=== PATIENT | male | born 1935 | race Caucasian/White ===

== ENCOUNTER 2018-10-10 16:24 | Emergency (ER) | payer MEDICARE, OTHER ==
[~2018-10-10] VITALS: Ht 188 cm; Wt 90.7 kg
--- OUTSIDE RECORDS SUMMARY | 2018-10-10 16:27 | XMS REPORT ---
Author Author [facility] Address Unknown Phone Unavailable Care Team Providers Care Promotional Marketing Agent Name Role Phone Unavailable Unavailable Payers Payer Name Policy Type Policy Number Effective Date Expiration Date Problems This patient has no known problems. Allergies, Adverse Reactions, Alerts Allergy Name Allergy Type Status Severity Reaction(s) Onset Date Inactive Date Treating Clinician Comments No Known Allergies DA Active U 2018-10-06 00:00:00 No Known Allergies DA Active U 2012-07-01 00:00:00 Medications This patient has no known medications. Results Test Description Test Time Test Comments Text Results Atomic Results Result Comments CHEMISTRY MISCELLANEOUS TEST 2018-10-07 12:22:00 CHEMISTRY TEST (test code=TESTC) NeoTYPE Analysis Next-Gen Myeloid Disorders Profile CHEMISTRY TEST RESULT (test code=RESULTC) Results Summary / Diagnostic & Prognostic Implications - NEXT GENERATION SEQUENCING (NGS): Pathogenic mutations aredetected in the following genes: KDM6A and TP53. A variantof unknown clinical significance is detected in the TEVWO2ncmw. No mutations are detected in the remaining genes onthe NGS panel. -TP53 mutation is typically seen in high grade MDS/AML caseswith a complex karyotype and suggests highly aggressivedisease and a poor prognosis, even within the poor-riskcytogenetic group. Detected Genomic IewszhimsbfogODB4I S818* V1171Muj*0JZUXD7 K8746Dmz*3TP53 Q167* K132N Disease Relevant Genes with No Reportable AlterationsIDH1 IDH2 FLT3 Test DescriptionNeoTYPE Myeloid Disorders Profile is performed by usingmassive parallel sequencing of the coding DNA unless anothermethod is noted. This includes sequencing of all the exons.An additional 50 nucleotides at the 5 and 3 ends of eachcoding exon are also sequenced to detect important splicingabnormalities. The genes sequenced are ABL1, ASXL1, ATRX,BCOR, BCORL1, BRAF, CALR, CBL, CBLB, CBLC, CDKN2A, CEBPA,CSF3R, CUX1, DNMT3A, ETV6, EZH2, FBXW7, FLT3, GATA1, GATA2, GNAS, HRAS, IDH1, IDH2, IKZF1, JAK2 (including V617F &Exons 12-14), JAK3, KDM6A, KIT, KMT2A (MLL), KRAS, MPL, MYD88, NF1, NOTCH1, NPM1, NRAS, PDGFRA, PHF6, PPM1D, PTEN,PTPN11, RAD21, RUNX1, SETBP1, SF3B1, SMC1A, SMC3, SRSF2, STAG2, TET2, TP53, U2AF1, WT1, and ZRSR2. Clinical SignificanceThe NeoTYPE Myeloid Disorders Profile is a 54 gene panelthat targets known mutations associated with acute myeloidleukemia (AML), myeloproliferative neoplasms (MPN),myelodysplastic syndrome (MDS), chronic myelogenous leukemia(CML), chronic myelomonocytic leukemia (CMML) and juvenilemyelomonocytic leukemia (JMML). Testing using this panelcan aid in making therapy decisions, predicting prognosis,and can be used in clinical research. This is a generic andcomprehensive profiling of myeloid neoplasms. MethodologyNucleic acid is isolated from plasma, fresh cells(peripheral blood cells, bone marrow or body fluid), orparaffin-embedded tissue. Testing for NeoTYPE Myeloid Disorders Profile is performed using Next-GenerationSequencing (NGS) of the coding DNA of the listed genes. This includes sequencing of all the exons. An additional 50 nucleotides at the 5 and 3 ends of each coding exon are also sequenced to detect important splicing abnormalities. Fragment length analysis is alsoperformed on CALR and FLT3 to enhance the detection of largeinsertion/deletion mutations. The NGS method has atypical sensitivity of 3% for detecting common specificmutations and 5% for other mutations. The following exonsare not included in the panel as they are not sufficiently covered with high quality sequence reads: FLT3 exon 1, NOTCH1 e xon 1, and NPM1 exon 2. These exons have been reviewed and do not contain clinically significant mutations. Exon 10 in PTEN and exon 11 in JAK3 containing p.[id number] typically have a limit of detection of 10% mutation allele frequency. The FLT3- ITD fragment analysis assay has a sensitivity of 5-10% for detecting FLT3-ITD in wildtype background. The FLT3 wildtypeand the ITD peak size and peak height are evaluated and usedfor mutation rate calculation [ITD/ (ITD+wildtype)] *100%.The CALR fragment analysis test has a sensitivity of 5% fordetecting heterozygous insertion/deletions in the wild-typebackground. Various factors including quantity and qualityof nucleic acid, sample preparation, and sample age canaffect assay performance. Electronic Anahi Louise M.D., Pathologist [facility] [id number] 12:22:00* Test Item Value Reference Range Comments FLUORESCENCE [employer] HYBRID (test code=FISH) FISH Analysis - AML Standard Results: Abnormal Interpretation:Del(5q): DETECTEDMonosomy 5: Not DetectedDel(7q): Not DetectedMonosomy 7: Not DetectedTrisomy 8: DETECTEDt(8;21): Not Detected (See Below)t(15;17): Not DetectedDel(20q): Not DetectedCBFB (Rearrangement): Not EfmmttofIBS5S (MLL) Rearrangement: Not Detected Fluorescence in situ hybridization (FISH) analysis wasperformed using a specific set of probes for acute myeloidleukemia. This study revealed multiple abnormalities involving:chromosome 5 (del 9w56-i15, 1R1G2A, 5.5%, normal < 3.8%),chromosome 8 (+8, 3A, 8.5%, normal < 3.1%) corroborated by the concurrent 8q probe, and chromosome 21 (loss of RUNX1, 1G, 11.0%, not seen in validation studies). Counts for the remaining probes were within the normal reference range. These findings represent an ABNORMAL result indicative of a complex abnormality. Deletion of 5q (5q-) or monosomy 5 has been reported in MDSand AML. In AML with 5q-/-5, the prognosis is generallyunfavorable, associated with rapid disease progression and poor outcome and survival, especially when it is seen as a part of complex karyotype. While the de yecenia "5q- syndrome"with isolated 5q- is recognized as a specific type of MDS in WHO classification and is associated with a favorable prognosis, the prognosis is less favorable when 5q- is found with other chromosome alterations in a complexkaryotype (3 or more abnormal ities). The current World Health Organization criteria for "MDS with isolated del(5q)" allows the presence of one additionalchromosomal abnormality other than -7 or deletion 7q.Trisomy 8 (+8) is associated with an intermediate prognosis. When abnormalities with favorable or intermediate prognosisare combined with other abnormalities (more than 3abnormalities present) the resulted complex abnormality is associated with a poor prognosis. Please correlate with other clinical and laboratory data. References:1. Guillermo PL, Shellieler H, Ion J, et al. Revisedinternational prognostic scoring system for myelodysplasticsyndromes. Blood 2012 Nov 19;120(12):2454-65.2. Carolina D, Mariangel RK, Leonora AV, et al. National CancerResearch [place] Adult Leukaemia Working Group. Refinementof cytogenetic classification in acute myeloid leukemia:determination of prognostic significance of rare recurringchromosomal abnormalities among 5876 younger adult patients treated in the [place] [employer] [place] trials. Blood 2009Sep 20;116(3):354-65.3. [place] of Genetics and Cytogenetics in Oncology andHematology [email or web address] Probe Set Detail:+8/20q-/-20: nuc eliel(CEN8x3,I74H114u5,09cenyw3)[]5q-/-5/+5 tricolor: nuc eliel(hTERTx2,EGR1x1,CVB30u9)[]7q-/-7 tri: nuc eliel(CEN7,O3U4034,M8I6472)x2[291]CBFB (16q22): nuc eliel(CBFBx2)[196]KMT2A (MLL) (11q23)*: nuc eliel(CLH1Pe8)[197]PML/HARRY t(15;17): nuc eliel(PML,HARRY)x2[190]RUNX1/IHRR9W4 (ETO/AML1) t(8;21): nucish(KSVS9I4x4,PONF4z7)[23/300]/(ATMT4H6c9,XCUQ7w8)[10/300]/(WPGX5K3n3,VUQR3b9)[/300] Nuclei Scored: 200 - 300 Electronic SignatureKim Janatpour, M.D., Pathologist - [facility] CHROMOSOME TATA BONE [id number] 12:22:00* Test Item Value Reference Range Comments CHROMOSOME TATA BONE MARROW (test code=CHROMBM) Oncology Chromosome Analysis Karyotype: 46,XY,del(5)(q11.2),del(13)(q12q22)[4]/46,XY[1] Interpretation:ABNORMAL MALE KARYOTYPE Cytogenetic analysis shows an 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 Fourcells show deletions of the long arms of chromosomes 5 and13. The remaining cell shows a normal karyotype. Deletions of the long arms of chromosomes 5 and 13 arecommon findings in myelodysplastic syndromes (MDS) and acutemyeloid leukemia (AML). These results should be interpretedin the context of clinical and histopathologic findings. PLEASE NOTE: Due to poor mitotic index, only five metaphasecells are available for analysis. This is less than ourstandard of twenty cells and therefore represents anincomplete study. Recommendation:Monitoring by cytogenetics, FISH and/or molecular studies isrecommended. Comments:Standard cytogenetic analysis may not detect subtlesubmicroscopic rearrangements and may not include metaphasesfrom abnormal cell populations with low mitotic ratesor present in low levels. Test Detail:Me reyes Counted: 5Metaphases Analyzed: 5Metaphases Karyotyped: 5Culture Type: 24EB, 48EBBanding Technique: GTGBanding Resolution: 400 Electronic SignatureGENOVEVA Beaulieu (CC), [facility] - [facility] Scott M.D., Ph.D., Pathologist - [facility]. LEUK/LYMPHOMA [id number] 12:22:00* Test Item Value Reference Range Comments LEUK/LYMPHOMA PANEL (test code=LEULYM) Specimen Type: Bone MarrowBody Site: Right Iliac Crest Diagnosis:Monoclonal B-cells, 7% Comments:Flow cytometry shows monoclonal B-cells (7% of total cells)with mod to bright CD20, mod CD19, dim/equivocal JF12yoavxhrigm, moderate to bright CD11c, dim/equivocal CD103, and moderate CD25. The findings raise the possibilityof a hairy cell leukemia as well asother B-cell lymphomas. Additional markers will be analyzedfor clarification and results will be addended. Ifclinically and morphologically indicated, BRAF mutation analysis may be helpful to excludeHCL. Dr. Pagan has seen this case and he agrees. Flow Differential (%) and Population Analysis: Lymphocytes: 53.1%T-cells (78% of lymphoid cells) show a CD4/CD8 ratio about0.8 without overt phenotypic abnormality. NKcells(2% of lymphoid cells) ar e unremarkable. Mature B-cells (13%of lymphoid cells) are lambda clonal :see above. Monocytes: 3.7%Monocytes show phenotypic evidence of maturation. Granulocytes: 37.4%Granulocytes show phenotypic evidence of maturation.CD45 Dim: 5.0%CD34+ cells (4.1% of total cells) are present.CD45 Ne.6%Erythroids and cell debris. Plasma Cells: 0.1%Plasma cells are not increased. Markers Performed:CD2, CD3, CD4, CD5, CD7, CD8, CD10, CD11c, CD13, CD14, CD16,CD19, CD20, CD22, CD23, CD25, CD33, CD34, CD38, CD45, CD56,CD64, CD103,CD117, HLA-DR, Pulpotio Bareas, Lambda (27 Markers) Katelyn Reeves M.D., Pathologist CBC W/MANUAL [id number] 19:54:00* Test Item Value Reference Range Comments WHITE BLOOD CELL (test code=WBC) 0.4 K/mm3 4.5-11.0 RED BLOOD CELL (test code=RBC) 2.28 M/mm3 4.40-5.90 HEMOGLOBIN (test code=HGB) 8.0 gm/dL 13.0-17.0 HEMATOCRIT (test code=HCT) 24.6 % 36.0-48.0 MEAN CELL VOLUME (test code=MCV) 107.9 UM3 80.0-94.0 MEAN CELL HGB (test code=MCH) 35.1 UUG 25.5-32.5 MEAN CELL HGB CONCETRATION (test code=MCHC) 32.5 gm/dL 29.0-35.5 RED CELL DISTRIBUTION WIDTH (test code=RDW) 22.4 % 11.5-15.0 RED CELL DISTRIBUTION WIDTH SD (test code=RDW-SD) 84.9 fL 34.8-50.2 PLATELET COUNT (test code=PLT) 38 K/mm3 150-400 PLT EST.=48 K/mm3 MEAN PLATELET VOLUME (test code=MPV) 9.9 fl 7.4-10.4 NEUTROPHIL % (test code=NT%) 22.5 % 49.0-76.0 IMMATURE GRANULOCYTE % (test code=IG%) 7.5 % 0.0-0.4 LYMPHOCYTE % (test code=LY%) 65.0 % 23.0-38.0 MONOCYTE % (test code=MO%) 5.0 % 1.0-10.0 EOSINOPHIL % (test code=EO%) 0.0 % 1.0-5.0 BASOPHIL % (test code=BA%) 0.0 % 0.0-1.0 NEUTROPHIL # (test code=NT#) 0.1 K/mm3 2.4-6.3 IMMATURE GRANULOCYTE # (test code=IG#) 0.03 x10 3/uL 0.00-0.07 LYMPHOCYTE # (test code=LY#) 0.3 K/mm3 1.2-4.0 MONOCYTE # (test code=MO#) 0.0 K/mm3 0.0-0.6 EOSINOPHIL # (test code=EO#) 0.0 K/MM3 0.0-0.7 BASOPHIL # (test code=BA#) 0.0 K/mm3 0.0-0.2 TOTAL CELLS COUNTED (test code=TCC) 100 #CELLS SEGMENTED NEUTROPHILS (test code=SEG) 18 % 50.0-70.0 BAND NEUTROPHIL (test code=BAND) 3 % 1.0-4.0 LYMPHOCYTE (test code=LYMPH) 52 % 20-40 ATYPICAL LYMPH (test code=ALYMPH) 20 1.0-4.0 MONOCYTE (test code=MON) 1 % 0-10 EOSINOPHIL (test code=EOS) 2 % 1.0-5.0 METAMYELOCYTE (test code=META) 4 % 0.0-1.0 ANISOCYTOSIS (test code=ANISO) 1+ MACROCYTOSIS (test code=MACR) 2+ PLATELET ESTIMATE (test code=PLTEST) DECREASED PLATELET MORPHOLOGY (test code=PLTMORPH) SMALL PLATELETS OCC SMALL PLTS, RARE PLT CLUMPS, AND OCC LARGE PLTS SEEN. Comments to [employer]: [facility]UAL [id number] 19:53:00* Test Item Value Reference Range Comments WHITE BLOOD CELL (test code=WBC) 0.4 K/mm3 4.5-11.0 RED BLOOD CELL (test code=RBC) 2.28 M/mm3 4.40-5.90 HEMOGLOBIN (test code=HGB) 8.0 gm/dL 13.0-17.0 HEMATOCRIT (test code=HCT) 24.6 % 36.0-48.0 MEAN CELL VOLUME (test code=MCV) 107.9 UM3 80.0-94.0 MEAN CELL HGB (test code=MCH) 35.1 UUG 25.5-32.5 MEAN CELL HGB CONCETRATION (test code=MCHC) 32.5 gm/dL 29.0-35.5 RED CELL DISTRIBUTION WIDTH (test code=RDW) 22.4 % 11.5-15.0 RED CELL DISTRIBUTION WIDTH SD (test code=RDW-SD) 84.9 fL 34.8-50.2 PLATELET COUNT (test code=PLT) 38 K/mm3 150-400 MEAN PLATELET VOLUME (test code=MPV) 9.9 fl 7.4-10.4 NEUTROPHIL % (test code=NT%) 22.5 % 49.0-76.0 IMMATURE GRANULOCYTE % (test code=IG%) 7.5 % 0.0-0.4 LYMPHOCYTE % (test code=LY%) 65.0 % 23.0-38.0 MONOCYTE % (test code=MO%) 5.0 % 1.0-10.0 EOSINOPHIL % (test code=EO%) 0.0 % 1.0-5.0 BASOPHIL % (test code=BA%) 0.0 % 0.0-1.0 NEUTROPHIL # (test code=NT#) 0.1 K/mm3 2.4-6.3 IMMATURE GRANULOCYTE # (test code=IG#) 0.03 x10 3/uL 0.00-0.07 LYMPHOCYTE # (test code=LY#) 0.3 K/mm3 1.2-4.0 MONOCYTE # (test code=MO#) 0.0 K/mm3 0.0-0.6 EOSINOPHIL # (test code=EO#) 0.0 K/MM3 0.0-0.7 BASOPHIL # (test code=BA#) 0.0 K/mm3 0.0-0.2 TOTAL CELLS COUNTED (test code=TCC) 100 #CELLS SEGMENTED NEUTROPHILS (test code=SEG) 18 % 50.0-70.0 BAND NEUTROPHIL (test code=BAND) 3 % 1.0-4.0 LYMPHOCYTE (test code=LYMPH) 52 % 20-40 ATYPICAL LYMPH (test code=ALYMPH) 20 1.0-4.0 MONOCYTE (test code=MON) 1 % 0-10 EOSINOPHIL (test code=EOS) 2 % 1.0-5.0 METAMYELOCYTE (test code=META) 4 % 0.0-1.0 ANISOCYTOSIS (test code=ANISO) 1+ MACROCYTOSIS (test code=MACR) 2+ PLATELET ESTIMATE (test code=PLTEST) DECREASED PLATELET MORPHOLOGY (test code=PLTMORPH) SMALL PLATELETS OCC SMALL PLTS, RARE PLT CLUMPS, AND OCC LARGE PLTS SEEN. Comments to [employer]: [facility] W/MANUAL [id number] 19:30:00* Test Item Value Reference Range Comments WHITE BLOOD CELL (test code=WBC) 0.4 K/mm3 4.5-11.0 RED BLOOD CELL (test code=RBC) 2.28 M/mm3 4.40-5.90 HEMOGLOBIN (test code=HGB) 8.0 gm/dL 13.0-17.0 HEMATOCRIT (test code=HCT) 24.6 % 36.0-48.0 MEAN CELL VOLUME (test code=MCV) 107.9 UM3 80.0-94.0 MEAN CELL HGB (test code=MCH) 35.1 UUG 25.5-32.5 MEAN CELL HGB CONCETRATION (test code=MCHC) 32.5 gm/dL 29.0-35.5 RED CELL DISTRIBUTION WIDTH (test code=RDW) 22.4 % 11.5-15.0 RED CELL DISTRIBUTION WIDTH SD (test code=RDW-SD) 84.9 fL 34.8-50.2 PLATELET COUNT (test code=PLT) 38 K/mm3 150-400 MEAN PLATELET VOLUME (test code=MPV) 9.9 fl 7.4-10.4 NEUTROPHIL % (test code=NT%) 22.5 % 49.0-76.0 IMMATURE GRANULOCYTE % (test code=IG%) 7.5 % 0.0-0.4 LYMPHOCYTE % (test code=LY%) 65.0 % 23.0-38.0 MONOCYTE % (test code=MO%) 5.0 % 1.0-10.0 EOSINOPHIL % (test code=EO%) 0.0 % 1.0-5.0 BASOPHIL % (test code=BA%) 0.0 % 0.0-1.0 NEUTROPHIL # (test code=NT#) 0.1 K/mm3 2.4-6.3 IMMATURE GRANULOCYTE # (test code=IG#) 0.03 x10 3/uL 0.00-0.07 LYMPHOCYTE # (test code=LY#) 0.3 K/mm3 1.2-4.0 MONOCYTE # (test code=MO#) 0.0 K/mm3 0.0-0.6 EOSINOPHIL # (test code=EO#) 0.0 K/MM3 0.0-0.7 BASOPHIL # (test code=BA#) 0.0 K/mm3 0.0-0.2 SEGMENTED NEUTROPHILS (test code=SEG) % 50.0-70.0 LYMPHOCYTE (test code=LYMPH) % 20-40 Comments to [employer]: ENDO/OUTPT RO[facility] W/MANUAL [id number] 19:30:00* Test Item Value Reference Range Comments WHITE BLOOD CELL (test code=WBC) 0.4 K/mm3 4.5-11.0 RED BLOOD CELL (test code=RBC) 2.28 M/mm3 4.40-5.90 HEMOGLOBIN (test code=HGB) 8.0 gm/dL 13.0-17.0 HEMATOCRIT (test code=HCT) 24.6 % 36.0-48.0 MEAN CELL VOLUME (test code=MCV) 107.9 UM3 80.0-94.0 MEAN CELL HGB (test code=MCH) 35.1 UUG 25.5-32.5 MEAN CELL HGB CONCETRATION (test code=MCHC) 32.5 gm/dL 29.0-35.5 RED CELL DISTRIBUTION WIDTH (test code=RDW) 22.4 % 11.5-15.0 RED CELL DISTRIBUTION WIDTH SD (test code=RDW-SD) 84.9 fL 34.8-50.2 PLATELET COUNT (test code=PLT) 38 K/mm3 150-400 MEAN PLATELET VOLUME (test code=MPV) 9.9 fl 7.4-10.4 NEUTROPHIL % (test code=NT%) 22.5 % 49.0-76.0 IMMATURE GRANULOCYTE % (test code=IG%) 7.5 % 0.0-0.4 LYMPHOCYTE % (test code=LY%) 65.0 % 23.0-38.0 MONOCYTE % (test code=MO%) 5.0 % 1.0-10.0 EOSINOPHIL % (test code=EO%) 0.0 % 1.0-5.0 BASOPHIL % (test code=BA%) 0.0 % 0.0-1.0 NEUTROPHIL # (test code=NT#) 0.1 K/mm3 2.4-6.3 IMMATURE GRANULOCYTE # (test code=IG#) 0.03 x10 3/uL 0.00-0.07 LYMPHOCYTE # (test code=LY#) 0.3 K/mm3 1.2-4.0 MONOCYTE # (test code=MO#) 0.0 K/mm3 0.0-0.6 EOSINOPHIL # (test code=EO#) 0.0 K/MM3 0.0-0.7 BASOPHIL # (test code=BA#) 0.0 K/mm3 0.0-0.2 SEGMENTED NEUTROPHILS (test code=SEG) % 50.0-70.0 LYMPHOCYTE (test code=LYMPH) % 20-40 Comments to [employer]: ENDO/OUTPT ROOM [facility] W/AUTO [id number] 15:25:00 * Test Item Value Reference Range Comments WHITE BLOOD CELL (test code=WBC) 0.4 K/mm3 4.5-11.0 RED BLOOD CELL (test code=RBC) 2.28 M/mm3 4.40-5.90 HEMOGLOBIN (test code=HGB) 8.0 gm/dL 13.0-17.0 HEMATOCRIT (test code=HCT) 24.6 % 36.0-48.0 MEAN CELL VOLUME (test code=MCV) 107.9 UM3 80.0-94.0 MEAN CELL HGB (test code=MCH) 35.1 UUG 25.5-32.5 MEAN CELL HGB CONCETRATION (test code=MCHC) 32.5 gm/dL 29.0-35.5 RED CELL DISTRIBUTION WIDTH (test code=RDW) 22.4 % 11.5-15.0 RED CELL DISTRIBUTION WIDTH SD (test code=RDW-SD) 84.9 fL 34.8-50.2 PLATELET COUNT (test code=PLT) 38 K/mm3 150-400 MEAN PLATELET VOLUME (test code=MPV) 9.9 fl 7.4-10.4 NEUTROPHIL % (test code=NT%) 22.5 % 49.0-76.0 IMMATURE GRANULOCYTE % (test code=IG%) 7.5 % 0.0-0.4 LYMPHOCYTE % (test code=LY%) 65.0 % 23.0-38.0 MONOCYTE % (test code=MO%) 5.0 % 1.0-10.0 EOSINOPHIL % (test code=EO%) 0.0 % 1.0-5.0 BASOPHIL % (test code=BA%) 0.0 % 0.0-1.0 NEUTROPHIL # (test code=NT#) 0.1 K/mm3 2.4-6.3 IMMATURE GRANULOCYTE # (test code=IG#) 0.03 x10 3/uL 0.00-0.07 LYMPHOCYTE # (test code=LY#) 0.3 K/mm3 1.2-4.0 MONOCYTE # (test code=MO#) 0.0 K/mm3 0.0-0.6 EOSINOPHIL # (test code=EO#) 0.0 K/MM3 0.0-0.7 BASOPHIL # (test code=BA#) 0.0 K/mm3 0.0-0.2 Comments to [employer]: ENDO/OUTPT ROOM [id number] 17:22:00* Test Item Value Reference Range Comments GLUBED (test code=GLUBED) 144 MG/DL 70-110 Performed by certified sealing machine operator at [facility] CBC W/AUTO [id number] 13:59:00* Test Item Value Reference Range Comments WHITE BLOOD CELL (test code=WBC) 0.69 x10 3/uL 4.5-11.0 RED BLOOD CELL (test code=RBC) 2.59 x10 6/uL 4.00-5.60 HEMOGLOBIN (test code=HGB) 9.0 g/dL 12.5-16.9 HEMATOCRIT (test code=HCT) 27.3 % 37.5-50.7 MEAN CELL VOLUME (test code=MCV) 105.4 fL 81.0-99.0 MEAN CELL HGB (test code=MCH) 34.7 pg 27.0-33.0 MEAN CELL HGB CONCETRATION (test code=MCHC) 33.0 g/dL 33.0-37.0 RED CELL DISTRIBUTION WIDTH CV (test code=RDW) 23.2 % 11.5-14.5 RED CELL DISTRIBUTION WIDTH SD (test code=RDW-SD) 85.3 fL 37.0-54.0 PLATELET COUNT (test code=PLT) 44 x10 3/uL 150-400 IMMATURE PLATELET FRACTION (test code=IPF) 1.8 % 0.9-11.2 MEAN PLATELET VOLUME (test code=MPV) 9.5 fL 7.0-9.0 MANUAL DIFF REQUIRED (test code=MDIFF) YES WBC [id number] 13:59:00* Test Item Value Reference Range Comments SEGMENTED NEUTROPHILS (test code=SEG) 35.4 % 37-69 LYMPHOCYTE (test code=LYMPH) 57.3 % 23-55 MONOCYTE (test code=MON) 6.4 % 0-10 EOSINOPHIL (test code=EOS) 0.9 % 0.0-4.0 ANISOCYTOSIS (test code=ANISO) 2+ MACROCYTOSIS (test code=MACR) 1+ PLATELET ESTIMATE (test code=PLTEST) 48-60 THOUSAND ADEQUATE CBC W/AUTO [id number] 12:50:00* Test Item Value Reference Range Comments WHITE BLOOD CELL (test code=WBC) 0.69 x10 3/uL 4.5-11.0 RED BLOOD CELL (test code=RBC) 2.59 x10 6/uL 4.00-5.60 HEMOGLOBIN (test code=HGB) 9.0 g/dL 12.5-16.9 HEMATOCRIT (test code=HCT) 27.3 % 37.5-50.7 MEAN CELL VOLUME (test code=MCV) 105.4 fL 81.0-99.0 MEAN CELL HGB (test code=MCH) 34.7 pg 27.0-33.0 MEAN CELL HGB CONCETRATION (test code=MCHC) 33.0 g/dL 33.0-37.0 RED CELL DISTRIBUTION WIDTH CV (test code=RDW) 23.2 % 11.5-14.5 RED CELL DISTRIBUTION WIDTH SD (test code=RDW-SD) 85.3 fL 37.0-54.0 PLATELET COUNT (test code=PLT) 44 x10 3/uL 150-400 IMMATURE PLATELET FRACTION (test code=IPF) 1.8 % 0.9-11.2 MEAN PLATELET VOLUME (test code=MPV) 9.5 fL 7.0-9.0 MANUAL DIFF REQUIRED (test code=MDIFF) YES WBC [id number] 12:50:00* Test Item Value Reference Range Comments ANISOCYTOSIS (test code=ANISO) PLATELET ESTIMATE (test code=PLTEST) THOUSAND ADEQUATE CBC W/AUTO [id number] 12:50:00* Test Item Value Reference Range Comments WHITE BLOOD CELL (test code=WBC) 0.69 x10 3/uL 4.5-11.0 RED BLOOD CELL (test code=RBC) 2.59 x10 6/uL 4.00-5.60 HEMOGLOBIN (test code=HGB) 9.0 g/dL 12.5-16.9 HEMATOCRIT (test code=HCT) 27.3 % 37.5-50.7 MEAN CELL VOLUME (test code=MCV) 105.4 fL 81.0-99.0 MEAN CELL HGB (test code=MCH) 34.7 pg 27.0-33.0 MEAN CELL HGB CONCETRATION (test code=MCHC) 33.0 g/dL 33.0-37.0 RED CELL DISTRIBUTION WIDTH CV (test code=RDW) 23.2 % 11.5-14.5 RED CELL DISTRIBUTION WIDTH SD (test code=RDW-SD) 85.3 fL 37.0-54.0 PLATELET COUNT (test code=PLT) 44 x10 3/uL 150-400 IMMATURE PLATELET FRACTION (test code=IPF) 1.8 % 0.9-11.2 MEAN PLATELET VOLUME (test code=MPV) 9.5 fL 7.0-9.0 MANUAL DIFF REQUIRED (test code=MDIFF) YES WBC [id number] 12:50:00* Test Item Value Reference Range Comments ANISOCYTOSIS (test code=ANISO) PLATELET ESTIMATE (test code=PLTEST) THOUSAND ADEQUATE CBC W/AUTO [id number] 12:19:00* Test Item Value Reference Range Comments WHITE BLOOD CELL (test code=WBC) 0.34 x10 3/uL 4.5-11.0 RED BLOOD CELL (test code=RBC) 2.23 x10 6/uL 4.00-5.60 HEMOGLOBIN (test code=HGB) 7.9 g/dL 12.5-16.9 HEMATOCRIT (test code=HCT) 24.3 % 37.5-50.7 MEAN CELL VOLUME (test code=MCV) 109.0 fL 81.0-99.0 MEAN CELL HGB (test code=MCH) 35.4 pg 27.0-33.0 MEAN CELL HGB CONCETRATION (test code=MCHC) 32.5 g/dL 33.0-37.0 RED CELL DISTRIBUTION WIDTH CV (test code=RDW) 24.0 % 11.5-14.5 RED CELL DISTRIBUTION WIDTH SD (test code=RDW-SD) 91.6 fL 37.0-54.0 PLATELET COUNT (test code=PLT) 45 x10 3/uL 150-400 MEAN PLATELET VOLUME (test code=MPV) 10.8 fL 7.0-9.0 MANUAL DIFF REQUIRED (test code=MDIFF) YES WBC [id number] 12:19:00* Test Item Value Reference Range Comments SEGMENTED NEUTROPHILS (test code=SEG) 26.9 % 37-69 LYMPHOCYTE (test code=LYMPH) 61.1 % 23-55 REACTIVE LYMPH (test code=RELYMPH) 9.3 % MONOCYTE (test code=MON) 0.9 % 0-10 MYELOCYTE (test code=MYELO) 1.8 % 0.0-0.0 NUCLEATED RED BLOOD CELL (test code=NRBC) 3.7 % POLYCHROMASIA (test code=POLC) SLIGHT POIKILOCYTOSIS (test code=POIK) SLIGHT ANISOCYTOSIS (test code=ANISO) 1+ MACROCYTOSIS (test code=MACR) 1+ TEAR DROP CELLS (test code=TEAR) FEW OVALOCYTES (test code=OVAL) 1+ PLATELET ESTIMATE (test code=PLTEST) 60-75 THOUSAND ADEQUATE PLATELET MORPHOLOGY (test code=PLTMORPH) LARGE PLATELETS LARGE PLTS SEEN CBC W/AUTO [id number] 12:08:00* Test Item Value Reference Range Comments WHITE BLOOD CELL (test code=WBC) 0.34 x10 3/uL 4.5-11.0 RED BLOOD CELL (test code=RBC) 2.23 x10 6/uL 4.00-5.60 HEMOGLOBIN (test code=HGB) 7.9 g/dL 12.5-16.9 HEMATOCRIT (test code=HCT) 24.3 % 37.5-50.7 MEAN CELL VOLUME (test code=MCV) 109.0 fL 81.0-99.0 MEAN CELL HGB (test code=MCH) 35.4 pg 27.0-33.0 MEAN CELL HGB CONCETRATION (test code=MCHC) 32.5 g/dL 33.0-37.0 RED CELL DISTRIBUTION WIDTH CV (test code=RDW) 24.0 % 11.5-14.5 RED CELL DISTRIBUTION WIDTH SD (test code=RDW-SD) 91.6 fL 37.0-54.0 PLATELET COUNT (test code=PLT) 45 x10 3/uL 150-400 MEAN PLATELET VOLUME (test code=MPV) 10.8 fL 7.0-9.0 MANUAL DIFF REQUIRED (test code=MDIFF) YES WBC [id number] 12:08:00* Test Item Value Reference Range Comments ANISOCYTOSIS (test code=ANISO) PLATELET ESTIMATE (test code=PLTEST) THOUSAND ADEQUATE CBC W/AUTO [id number] 12:08:00* Test Item Value Reference Range Comments WHITE BLOOD CELL (test code=WBC) 0.34 x10 3/uL 4.5-11.0 RED BLOOD CELL (test code=RBC) 2.23 x10 6/uL 4.00-5.60 HEMOGLOBIN (test code=HGB) 7.9 g/dL 12.5-16.9 HEMATOCRIT (test code=HCT) 24.3 % 37.5-50.7 MEAN CELL VOLUME (test code=MCV) 109.0 fL 81.0-99.0 MEAN CELL HGB (test code=MCH) 35.4 pg 27.0-33.0 MEAN CELL HGB CONCETRATION (test code=MCHC) 32.5 g/dL 33.0-37.0 RED CELL DISTRIBUTION WIDTH CV (test code=RDW) 24.0 % 11.5-14.5 RED CELL DISTRIBUTION WIDTH SD (test code=RDW-SD) 91.6 fL 37.0-54.0 PLATELET COUNT (test code=PLT) 45 x10 3/uL 150-400 MEAN PLATELET VOLUME (test code=MPV) 10.8 fL 7.0-9.0 MANUAL DIFF REQUIRED (test code=MDIFF) YES WBC [id number] 12:08:00* Test Item Value Reference Range Comments ANISOCYTOSIS (test code=ANISO) PLATELET ESTIMATE (test code=PLTEST) THOUSAND ADEQUATE [id number] 08:51:00* Test Item Value Reference Range Comments GLUBED (test code=GLUBED) 214 MG/DL 70-110 Performed by certified sealing machine operator at [facility] CBC W/AUTO [id number] 08:30:00* Test Item Value Reference Range Comments WHITE BLOOD CELL (test code=WBC) 0.34 x10 3/uL 4.5-11.0 RED BLOOD CELL (test code=RBC) 2.23 x10 6/uL 4.00-5.60 HEMOGLOBIN (test code=HGB) 7.9 g/dL 12.5-16.9 HEMATOCRIT (test code=HCT) 24.3 % 37.5-50.7 MEAN CELL VOLUME (test code=MCV) 109.0 fL 81.0-99.0 MEAN CELL HGB (test code=MCH) 35.4 pg 27.0-33.0 MEAN CELL HGB CONCETRATION (test code=MCHC) 32.5 g/dL 33.0-37.0 RED CELL DISTRIBUTION WIDTH CV (test code=RDW) 24.0 % 11.5-14.5 RED CELL DISTRIBUTION WIDTH SD (test code=RDW-SD) 91.6 fL 37.0-54.0 PLATELET COUNT (test code=PLT) 45 x10 3/uL 150-400 MEAN PLATELET VOLUME (test code=MPV) 10.8 fL 7.0-9.0 LYMPHOCYTE % (test code=LY%) % 14.0-32.0 MANUAL DIFF REQUIRED (test code=MDIFF) BASIC METABOLIC [id number] 08:29:00* Test Item Value Reference Range Comments SODIUM (test code=NA) 138 mEq/L 134-147 POTASSIUM (test code=K) 4.9 mEq/L 3.4-5.0 CHLORIDE (test code=CL) 108 mEq/L 100-108 CARBON DIOXIDE (test code=CO2) 24 mEq/L 21-33 ANION GAP (test code=GAP) 11 0-20 GLUCOSE (test code=GLU) 243 mg/dL 70-110 BLOOD UREA NITROGEN (test code=BUN) 45 mg/dL 7-18 GLOMERULAR FILTRATION RATE (test code=GFR) 36.0 70-80 Units of measure=ml/min/1.73 m2 CREATININE (test code=CREAT) 1.8 mg/dL 0.6-1.3 CALCIUM (test code=CA) 8.5 mg/dL 8.0-10.5 HGBA1C%2018-09-29 16:51:00* Test Item Value Reference Range Comments HGBA1C% (test code=HGBA1C%) < 3.5 %A1C 4.8-6.0 T4 [id number] 16:51:00* Test Item Value Reference Range Comments T4 FREE (test code=T4F) 1.6 ng/dL 0.77-1.61 THYROID STIMULATING [id number] 16:51:00* Test Item Value Reference Range Comments THYROID STIMULATING HORMONE (test code=TSH) 0.79 0.42-5.47 Results in eddie-International Units/mL [id number] 16:08:00* Test Item Value Reference Range Comments GLUBED (test code=GLUBED) 203 MG/DL 70-110 Performed by certified sealing machine operator at [facility] CBC W/MANUAL [id number] 13:11:00* Test Item Value Reference Range Comments WHITE BLOOD CELL (test code=WBC) 0.29 x10 3/uL 4.5-11.0 RED BLOOD CELL (test code=RBC) 1.58 x10 6/uL 4.00-5.60 HEMOGLOBIN (test code=HGB) 5.9 g/dL 12.5-16.9 HEMATOCRIT (test code=HCT) 18.3 % 37.5-50.7 MEAN CELL VOLUME (test code=MCV) 115.8 fL 81.0-99.0 MEAN CELL HGB (test code=MCH) 37.3 pg 27.0-33.0 MEAN CELL HGB CONCETRATION (test code=MCHC) 32.2 g/dL 33.0-37.0 RED CELL DISTRIBUTION WIDTH CV (test code=RDW) 22.7 % 11.5-14.5 RED CELL DISTRIBUTION WIDTH SD (test code=RDW-SD) 94.6 fL 37.0-54.0 PLATELET COUNT (test code=PLT) 50 x10 3/uL 150-400 MEAN PLATELET VOLUME (test code=MPV) 9.8 fL 7.0-9.0 SEGMENTED NEUTROPHILS (test code=SEG) 14.5 % 37-69 LYMPHOCYTE (test code=LYMPH) 76.8 % 23-55 REACTIVE LYMPH (test code=RELYMPH) 2.9 % MONOCYTE (test code=MON) 2.9 % 0-10 EOSINOPHIL (test code=EOS) 2.9 % 0.0-4.0 NUCLEATED RED BLOOD CELL (test code=NRBC) 1.4 % POLYCHROMASIA (test code=POLC) 1+ HYPOCHROMIA (test code=HYPO) SLIGHT POIKILOCYTOSIS (test code=POIK) 1+ BASOPHILIC STIPPLING (test code=STP) FEW ANISOCYTOSIS (test code=ANISO) 2+ MACROCYTOSIS (test code=MACR) 1+ TARGET CELLS (test code=TGT) FEW TEAR DROP CELLS (test code=TEAR) FEW ELLIPTOCYTES (test code=ELL) FEW PLATELET ESTIMATE (test code=PLTEST) 80-100 THOUSAND ADEQUATE PLATELET MORPHOLOGY (test code=PLTMORPH) LARGE PLATELETS FEW LARGE PLTS SEEN CBC W/MANUAL [id number] 12:54:00* Test Item Value Reference Range Comments WHITE BLOOD CELL (test code=WBC) 0.29 x10 3/uL 4.5-11.0 RED BLOOD CELL (test code=RBC) 1.58 x10 6/uL 4.00-5.60 HEMOGLOBIN (test code=HGB) 5.9 g/dL 12.5-16.9 HEMATOCRIT (test code=HCT) 18.3 % 37.5-50.7 MEAN CELL VOLUME (test code=MCV) 115.8 fL 81.0-99.0 MEAN CELL HGB (test code=MCH) 37.3 pg 27.0-33.0 MEAN CELL HGB CONCETRATION (test code=MCHC) 32.2 g/dL 33.0-37.0 RED CELL DISTRIBUTION WIDTH CV (test code=RDW) 22.7 % 11.5-14.5 RED CELL DISTRIBUTION WIDTH SD (test code=RDW-SD) 94.6 fL 37.0-54.0 PLATELET COUNT (test code=PLT) 50 x10 3/uL 150-400 MEAN PLATELET VOLUME (test code=MPV) 9.8 fL 7.0-9.0 ANISOCYTOSIS (test code=ANISO) PLATELET ESTIMATE (test code=PLTEST) THOUSAND ADEQUATE FLUORESCENCE INSITU [id number] 12:01:00* Test Item Value Reference Range Comments FLUORESCENCE INSITU HYBRID (test code=FISH) FISH Analysis - AML Standard Results: Abnormal Interpretation:Del(5q): DETECTEDMonosomy 5: Not DetectedDel(7q): Not DetectedMonosomy 7: Not DetectedTrisomy 8: DETECTEDt(8;21): Not Detected (See Below)t(15;17): Not DetectedDel(20q): Not DetectedCBFB (Rearrangement): Not HlztadxuPII1K (MLL) Rearrangement: Not Detected Fluorescence in situ hybridization (FISH) analysis wasperformed using a specific set of probes for acute myeloidleukemia. This study revealed multiple abnormalities involving:chromosome 5 (del 3e49-q32, 1R1G2A, 5.5%, normal < 3.8%),chromosome 8 (+8, 3A, 8.5%, normal < 3.1%) corroborated by the concurrent 8q probe, and chromosome 21 (loss of RUNX1, 1G, 11.0%, not seen in validation studies). Counts for the remaining probes were within the normal reference range. These findings represent an ABNORMAL result indicative of a complex abnormality. Deletion of 5q (5q-) or monosomy 5 has been reported in MDSand AML. In AML with 5q-/-5, the prognosis is generallyunfavorable, associated with rapid disease progression and poor outcome and survival, especially when it is seen as a part of complex karyotype. While the de yecenia "5q- syndrome"with isolated 5q- is recognized as a specific type of MDS in WHO classification and is associated with a favorable prognosis, the prognosis is less favorable when 5q- is found with other chromosome alterations in a complexkaryotype (3 or more abnormalities). The current World Health Organization criteria for "MDS with isolated del(5q)" allows the presence of one additionalchromosomal abnormality other than -7 or deletion 7q.Trisomy 8 (+8) is associated with an intermediate prognosis. When abnormalities with favorable or intermediate prognosisare combined with other abnormalities (more than 3abnormalities present) the resulted complex abnormality is associated with a poor prognosis. Please correlate with other clinical and laboratory data. References:1. Guillermo PL, Tuechler H, Schansujey J, et al. Revisedinternational prognostic scoring system for myelodysplasticsyndromes. Blood 2012 Nov 19;120(12):2454-65.2. Carolina D, Mariangel RK, Leonora AV, et al. National CancerResearch [place] Adult Leukaemia Working Group. Refinementof cytogenetic classification in acute myeloid leukemia:determination of prognostic significance of rare recurringchromosomal abnormalities among 5876 younger adult patients treated in the [place] [employer] [place] trials. Blood 2009Sep 20;116(3):354-65.3. [place] of [employer] and Cytogenetics in Oncology andHematology [email or web address] Probe Set Detail:+8/20q-/-20: nuc eliel(CEN8x3,M14N889l9,15aaixt2)[17200]5q-/-5/+5 tricolor: nuc eliel(hTERTx2,EGR1x1,MPX82n8)[200]7q-/-7 tri: nuc eliel(CEN7,M4R6092,B3O0742)x2[291]CBFB (16q22): nuc eliel(CBFBx2)[196]KMT2A (MLL) (11q23)*: nuc eliel(QDP4Pd4)[197]PML/HARRY t(15;17): nuc eliel(PML,HARRY)x2[190]RUNX1/NBIF2J2 (ETO/AML1) t(8;21): nucish(LPYO7X6y3,UGQR7m2)[23/300]/(NAVY4G9i9,PDRX3z0)[10/300]/(LDGK6J3t2,XFEA8f0)[7/300] Nuclei Scored: 200 - 300 Electronic SignatureKim Gordon Lozoya, Pathologist - [facility] CHROMOSOME TATA BONE [id number] 12:01:00* Test Item Value Reference Range Comments CHROMOSOME TATA BONE MARROW (test code=CHROMBM) Oncology Chromosome Analysis Karyotype: 46,XY,del(5)(q11.2),del(13)(q12q22)[4]/46,XY[1] Interpretation:ABNORMAL MALE KARYOTYPE Cytogenetic analysis shows an 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 Fourcells show deletions of the long arms of chromosomes 5 and13. The remaining cell shows a normal karyotype. Deletions of the long arms of chromosomes 5 and 13 arecommon findings in myelodysplastic syndromes (MDS) and acutemyeloid leukemia (AML). These results should be interpretedin the context of clinical and histopathologic findings. PLEASE NOTE: Due to poor mitotic index, only five metaphasecells are available for analysis. This is less than ourstandard of twenty cells and therefore represents anincomplete study. Recommendation:Monitoring by cytogenetics, FISH and/or molecular studies isrecommended. Comments:Standard cytogenetic analysis may not detect subtlesubmicroscopic rearrangements and may not include metaphasesfrom abnormal cell populations with low mitotic ratesor present in low levels. Test Detail:Me graykapil Counted: 5Metaphases Analyzed: 5Metaphases Karyotyped: 5Culture Type: 24EB, 48EBBanding Technique: GTGBanding Resolution: 400 Electronic Nemours FoundationLiang GENOVEVA Leon (CC), [facility] - [facility] LabSdevante Scott M.D., Ph.D., Pathologist - [facility]. LEUK/LYMPHOMA [id number] 12:01:00* Test Item Value Reference Range Comments LEUK/LYMPHOMA PANEL (test code=LEULYM) Specimen Type: Bone MarrowBody Site: Right Iliac Crest Diagnosis:Monoclonal B-cells, 7% Comments:Flow cytometry shows monoclonal B-cells (7% of total cells)with mod to bright CD20, mod CD19, dim/equivocal LY15pblhjbhkbg, moderate to bright CD11c, dim/equivocal CD103, and moderate CD25. The findings raise the possibilityof a hairy cell leukemia as well asother B-cell lymphomas. Additional markers will be analyzedfor clarification and results will be addended. Ifclinically and morphologically indicated, BRAF mutation analysis may be helpful to excludeHCL. Dr. Pagan has seen this case and he agrees. Flow Differential (%) and Population Analysis: Lymphocytes: 53.1%T-cells (78% of lymphoid cells) show a CD4/CD8 ratio about0.8 without overt phenotypic abnormality. NKcells(2% of lymphoid cells) ar e unremarkable. Mature B-cells (13%of lymphoid cells) are lambda clonal :see above. Monocytes: 3.7%Monocytes show phenotypic evidence of maturation. Granulocytes: 37.4%Granulocytes show phenotypic evidence of maturation.CD45 Dim: 5.0%CD34+ cells (4.1% of total cells) are present.CD45 Ne.6%Erythroids and cell debris. Plasma Cells: 0.1%Plasma cells are not increased. Markers Performed:CD2, CD3, CD4, CD5, CD7, CD8, CD10, CD11c, CD13, CD14, CD16,CD19, CD20, CD22, CD23, CD25, CD33, CD34, CD38, CD45, CD56,CD64, CD103,CD117, HLA-DR, Pulpotio Bareas, Lambda (27 Markers) Electronic Shahzad Reeves M.D., Pathologist FLUORESCENCE INSITU [id number] 11:55:00* Test Item Value Reference Range Comments FLUORESCENCE INSITU HYBRID (test code=FISH) CHROMOSOME TATA BONE [id number] 11:55:00* Test Item Value Reference Range Comments CHROMOSOME TATA BONE MARROW (test code=CHROMBM) Oncology Chromosome Analysis Karyotype: 46,XY,del(5)(q11.2),del(13)(q12q22)[4]/46,XY[1] Interpretation:ABNORMAL MALE KARYOTYPE Cytogenetic analysis shows an 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 Fourcells show deletions of the long arms of chromosomes 5 and13. The remaining cell shows a normal karyotype. Deletions of the long arms of chromosomes 5 and 13 arecommon findings in myelodysplastic syndromes (MDS) and acutemyeloid leukemia (AML). These results should be interpretedin the context of clinical and histopathologic findings. PLEASE NOTE: Due to poor mitotic index, only five metaphasecells are available for analysis. This is less than ourstandard of twenty cells and therefore represents anincomplete study. Recommendation:Monitoring by cytogenetics, FISH and/or molecular studies isrecommended. Comments:Standard cytogenetic analysis may not detect subtlesubmicroscopic rearrangements and may not include metaphasesfrom abnormal cell populations with low mitotic ratesor present in low levels. Test Detail:Me reyes Counted: 5Metaphases Analyzed: 5Metaphases Karyotyped: 5Culture Type: 24EB, 48EBBanding Technique: GTGBanding Resolution: 400 Electronic GENOVEVA Evans (CC), [facility] - [facility] Scott M.D., Ph.D., Pathologist - [facility]. LEUK/LYMPHOMA [id number] 11:55:00* Test Item Value Reference Range Comments LEUK/LYMPHOMA PANEL (test code=LEUSTEVIE) Specimen Type: Bone MarrowBody Site: Right Iliac Crest Diagnosis:Monoclonal B-cells, 7% Comments:Flow cytometry shows monoclonal B-cells (7% of total cells)with mod to bright CD20, mod CD19, dim/equivocal AP81growxipben, moderate to bright CD11c, dim/equivocal CD103, and moderate CD25. The findings raise the possibilityof a hairy cell leukemia as well asother B-cell lymphomas. Additional markers will be analyzedfor clarification and results will be addended. Ifclinically and morphologically indicated, BRAF mutation analysis may be helpful to excludeHCL. Dr. Pagan has seen this case and he agrees. Flow Differential (%) and Population Analysis: Lymphocytes: 53.1%T-cells (78% of lymphoid cells) show a CD4/CD8 ratio about0.8 without overt phenotypic abnormality. NKcells(2% of lymphoid cells) ar e unremarkable. Mature B-cells (13%of lymphoid cells) are lambda clonal :see above. Monocytes: 3.7%Monocytes show phenotypic evidence of maturation. Granulocytes: 37.4%Granulocytes show phenotypic evidence of maturation.CD45 Dim: 5.0%CD34+ cells (4.1% of total cells) are present.CD45 Ne.6%Erythroids and cell debris. Plasma Cells: 0.1%Plasma cells are not increased. Markers Performed:CD2, CD3, CD4, CD5, CD7, CD8, CD10, CD11c, CD13, CD14, CD16,CD19, CD20, CD22, CD23, CD25, CD33, CD34, CD38, CD45, CD56,CD64, CD103,CD117, HLA-DR, Pulpotio Bareas, Lambda (27 Markers) Katelyn Reeves M.D., Pathologist CBC W/MANUAL [id number] 14:58:00* Test Item Value Reference Range Comments WHITE BLOOD CELL (test code=WBC) 0.31 x10 3/uL 4.5-11.0 RED BLOOD CELL (test code=RBC) 1.72 x10 6/uL 4.00-5.60 HEMOGLOBIN (test code=HGB) 6.5 g/dL 12.5-16.9 HEMATOCRIT (test code=HCT) 19.7 % 37.5-50.7 MEAN CELL VOLUME (test code=MCV) 114.5 fL 81.0-99.0 MEAN CELL HGB (test code=MCH) 37.8 pg 27.0-33.0 MEAN CELL HGB CONCETRATION (test code=MCHC) 33.0 g/dL 33.0-37.0 PLATELET COUNT (test code=PLT) 33 x10 3/uL 150-400 MEAN PLATELET VOLUME (test code=MPV) 9.8 fL 7.0-9.0 SEGMENTED NEUTROPHILS (test code=SEG) 12 % 37-69 TOTAL CELLS COUNTED=25 LYMPHOCYTE (test code=LYMPH) 80 % 23-55 MONOCYTE (test code=MON) 4 % 0-10 EOSINOPHIL (test code=EOS) 4 % 0.0-4.0 ANISOCYTOSIS (test code=ANISO) 2+ MACROCYTOSIS (test code=MACR) 2+ PLATELET ESTIMATE (test code=PLTEST) 32-40 THOUSAND ADEQUATE CBC W/MANUAL [id number] 14:07:00* Test Item Value Reference Range Comments WHITE BLOOD CELL (test code=WBC) 0.31 x10 3/uL 4.5-11.0 RED BLOOD CELL (test code=RBC) 1.72 x10 6/uL 4.00-5.60 HEMOGLOBIN (test code=HGB) 6.5 g/dL 12.5-16.9 HEMATOCRIT (test code=HCT) 19.7 % 37.5-50.7 MEAN CELL VOLUME (test code=MCV) 114.5 fL 81.0-99.0 MEAN CELL HGB (test code=MCH) 37.8 pg 27.0-33.0 MEAN CELL HGB CONCETRATION (test code=MCHC) 33.0 g/dL 33.0-37.0 PLATELET COUNT (test code=PLT) 33 x10 3/uL 150-400 MEAN PLATELET VOLUME (test code=MPV) 9.8 fL 7.0-9.0 ANISOCYTOSIS (test code=ANISO) PLATELET ESTIMATE (test code=PLTEST) THOUSAND ADEQUATE SURGICAL [id number] 09:47:00 RUN DATE: 09/18/18 [facility] *LIVE* PAGE 1 RUN TIME: 946 Specimen Inqui ry RUN USER: INTERFACE PATIENT: JOE AVILA ACCT #: [id number] LOC: [facility] U #: [id number] AGE/SX: 83/M ROOM: [facility] RE09/08/18REG DR: Jina Kamara DO : 31 BED: 1 DIS: 09/13/18 STATUS: DIS IN TLOC: SPEC #: [id number] RECD: 09/10/18 STATUS: SOUJb REQ #: [id number] HOLLIE: 09/10/[address] [facility] [address]: Jina Kamara DO ENTERED: 09/18/18 SP TYPE: SURG SPEC OTHR DR: No Olga nilo or Family Physician Self Referred Judi Burkett MDORDERED: GM LEVEL 4 CODES: [id number] - BONE MARROW, NO COPIES TO: No Prim juan or Family Physician Self Referred Judi Crowe MD [address] [place] [address] [place] [address] [facility] [address] [place], [place] [id number] PROCEDURES: GM LEVEL 4 (I ncomplete) TISSUES: 1. BONE MARROW, NOS - Bone marrow, asp. and bx. COMMENTS Flow cytometery studies (see attached report for complete details) reveal monoclonal B cells, 7%. This case has been forwarded to [employer] for consultation. The consultation report is attached for complete details. FINAL DIAGNOSIS Bone marrow, asp. 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 CONTINUED ON NEXT PAGE RUN DATE: 09/18/18 [facility] *LIVE* PAGE 2 RUN TIME: 946 Specimen Inquiry RUN USER: INTERFACE -- SPEC #: [id number] PATIENT: JOE AVILA #[id number] (Continued) GROSS AND MICROSCOPIC BONE MARROW BI OPSY (DECALCIFIED SPECIMEN) AND CLOT SECTIONS: Adequacy: Adequa te for evaluation. Megakaryocytes: Dy splastic forms. Maturation: Moderate to marked left shift of myeloid cells. Iron Stains: Stainable iron present. BONE MARROW SMEARS: Adequacy: Adequate for eval uation. Megakaryocytes: Dysplastic for ms. Maturation: approximately 15% bl asts. Iron Stains: Increased storage iro n with no increase in ringd sideroblasts. PERIPHERAL BLOOD: White blood cells: Reduced in number. Red blood cells: marked anisopoikilocytosis with some macrocytes, microcytes, polychromatic cells, and occasiona l teardrop cells, schistocytes, and acanthocytes. Platelets: Decrease in number. POST-OP DIAGNOSIS None given PRE-OP DIAGNOSIS Severe pancytopenia, R/O MDS, leukemia REVIEWED BY: Signed SIGNATURE ON FILE Khadar Napoles MD [address]47 EN D OF REPORT FLUORESCENCE INSITU [id number] 13:15:00* Test Item Value Reference Range Comments FLUORESCENCE INSITU HYBRID (test code=FISH) CHROMOSOME TATA BONE [id number] 13:15:00* Test Item Value Reference Range Comments CHROMOSOME TATA BONE MARROW (test code=CHROMBM) LEUK/LYMPHOMA [id number] 13:15:00* Test Item Value Reference Range Comments LEUK/LYMPHOMA PANEL (test code=LEULYM) Specimen Type: Bone MarrowBody Site: Right Iliac Crest Diagnosis:Monoclonal B-cells, 7% Comments:Flow cytometry shows monoclonal B-cells (7% of total cells)with mod to bright CD20, mod CD19, dim/equivocal HN32egsuwvpbdy, moderate to bright CD11c, dim/equivocal CD103, and moderate CD25. The findings raise the possibilityof a hairy cell leukemia as well asother B-cell lymphomas. Additional markers will be analyzedfor clarification and results will be addended. Ifclinically and morphologically indicated, BRAF mutation analysis may be helpful to excludeHCL. Dr. Pagan has seen this case and he agrees. Flow Differential (%) and Population Analysis: Lymphocytes: 53.1%T-cells (78% of lymphoid cells) show a CD4/CD8 ratio about0.8 without overt phenotypic abnormality. NKcells(2% of lymphoid cells) ar e unremarkable. Mature B-cells (13%of lymphoid cells) are lambda clonal :see above. Monocytes: 3.7%Monocytes show phenotypic evidence of maturation. Granulocytes: 37.4%Granulocytes show phenotypic evidence of maturation.CD45 Dim: 5.0%CD34+ cells (4.1% of total cells) are present.CD45 Ne.6%Erythroids and cell debris. Plasma Cells: 0.1%Plasma cells are not increased. Markers Performed:CD2, CD3, CD4, CD5, CD7, CD8, CD10, CD11c, CD13, CD14, CD16,CD19, CD20, CD22, CD23, CD25, CD33, CD34, CD38, CD45, CD56,CD64, CD103,CD117, HLA-DR, Pulpotio Bareas, Lambda (27 Markers) Katelyn Reeves M.D., Pathologist [id number] 17:42:00* Test Item Value Reference Range Comments GLUBED (test code=GLUBED) 154 MG/DL 70-110 Performed by certified sealing machine operator at [facility] PROTEIN ELECTROPHORESIS [id number] 17:08:00* Test Item Value Reference Range Comments TOTAL PROTEIN (test code=PROTE) 5.1 g/dL 6.0-8.5 ALBUMIN (test code=ALBE) 3.0 g/dL 2.9-4.4 CWDHZ-1-OVFLBVBM (test code=A1G) 0.3 g/dL 0.0-0.4 BOIKC-1-IWIYRSYO (test code=A2G) 0.7 g/dL 0.4-1.0 BETA GLOBULIN (test code=BG) 0.6 g/dL 0.7-1.3 GAMMA GLOBULIN (test code=GG) 0.6 g/dL 0.4-1.8 M-SPIKE,SERUM (test code=MSPIKES) Not Observed g/dL Not Observed GLOBULIN ELECT (test code=GLOBE) 2.1 g/dL 2.2-3.9 ALBUMIN/GLOBULIN RATIO (test code=AGE) 1.4 0.7-1.7 PROT.ELECTROPH.INTERPRETATION (test code=ELEINT) () The SPE pattern reflects hypoalbuminemia. Evidence ofmonoclonal protein is not apparent.Performed At: [facility] [address] [id number] Kyle L MD Ph:[phone] At: [facility] [address] [place], [place] [id number] CN MD Ph:[phone] LACTIC DEHYDROGENASE(LDH)2018-09-13 17:08:00* Test Item Value Reference Range Comments LACTIC DEHYDROGENASE(LDH) (test code=LDH) 267 IUnits/L 87-241 TOTAL IRON BINDING [id number] 17:08:00* Test Item Value Reference Range Comments SERUM IRON (test code=IRON) 198 mcg/dL 35-150 TOTAL IRON BINDING CAPACITY (test code=TIBC) 194 mcg/dL 260-445 UIBC (test code=UIBC) -4 mcg/dL IRON SATURATION (test code=FESAT) 102.1 % 14-34 VITAMIN [id number] 17:08:00* Test Item Value Reference Range Comments VITAMIN B12 (test code=VITB12) 328 pg/mL 193-986 FOLIC [id number] 17:08:00* Test Item Value Reference Range Comments FOLIC ACID (test code=FOL) 7.2 ng/mL 3.1-17.5 THYROID STIMULATING [id number] 17:08:00* Test Item Value Reference Range Comments THYROID STIMULATING HORMONE (test code=TSH) 0.98 0.42-5.47 Results in eddie-International Units/mL [id number] 17:08:00* Test Item Value Reference Range Comments FERRITIN (test code=REMBERTO) 724.0 ng/mL 23.9-336.2 [id number] 15:30:00* Test Item Value Reference Range Comments GLUBED (test code=GLUBED) 168 MG/DL 70-110 Performed by certified sealing machine operator at [facility] CBC W/AUTO [id number] 11:28:00* Test Item Value Reference Range Comments WHITE BLOOD CELL (test code=WBC) 0.54 x10 3/uL 4.5-11.0 RED BLOOD CELL (test code=RBC) 2.27 x10 6/uL 4.00-5.60 HEMOGLOBIN (test code=HGB) 8.3 g/dL 12.5-16.9 HEMATOCRIT (test code=HCT) 25.4 % 37.5-50.7 MEAN CELL VOLUME (test code=MCV) 111.9 fL 81.0-99.0 MEAN CELL HGB (test code=MCH) 36.6 pg 27.0-33.0 MEAN CELL HGB CONCETRATION (test code=MCHC) 32.7 g/dL 33.0-37.0 RED CELL DISTRIBUTION WIDTH CV (test code=RDW) 22.7 % 11.5-14.5 RED CELL DISTRIBUTION WIDTH SD (test code=RDW-SD) 91.1 fL 37.0-54.0 PLATELET COUNT (test code=PLT) 26 x10 3/uL 150-400 MEAN PLATELET VOLUME (test code=MPV) 10.9 fL 7.0-9.0 MANUAL DIFF REQUIRED (test code=MDIFF) YES WBC [id number] 11:28:00* Test Item Value Reference Range Comments SEGMENTED NEUTROPHILS (test code=SEG) 11 % 37-69 LYMPHOCYTE (test code=LYMPH) 83 % 23-55 MONOCYTE (test code=MON) 2 % 0-10 EOSINOPHIL (test code=EOS) 3 % 0.0-4.0 MYELOCYTE (test code=MYELO) 1 % 0.0-0.0 POLYCHROMASIA (test code=POLC) SLIGHT POIKILOCYTOSIS (test code=POIK) SLIGHT FEW ELLIPTOCYTES SEEN ANISOCYTOSIS (test code=ANISO) 1+ MACROCYTOSIS (test code=MACR) 1+ TEAR DROP CELLS (test code=TEAR) SEEN PLATELET ESTIMATE (test code=PLTEST) 48-60 THOUSAND ADEQUATE FEW LARGE PLTS SEEN PLATELET MORPHOLOGY (test code=PLTMORPH) LARGE PLATELETS CBC W/AUTO [id number] 11:12:00* Test Item Value Reference Range Comments WHITE BLOOD CELL (test code=WBC) 0.54 x10 3/uL 4.5-11.0 RED BLOOD CELL (test code=RBC) 2.27 x10 6/uL 4.00-5.60 HEMOGLOBIN (test code=HGB) 8.3 g/dL 12.5-16.9 HEMATOCRIT (test code=HCT) 25.4 % 37.5-50.7 MEAN CELL VOLUME (test code=MCV) 111.9 fL 81.0-99.0 MEAN CELL HGB (test code=MCH) 36.6 pg 27.0-33.0 MEAN CELL HGB CONCETRATION (test code=MCHC) 32.7 g/dL 33.0-37.0 RED CELL DISTRIBUTION WIDTH CV (test code=RDW) 22.7 % 11.5-14.5 RED CELL DISTRIBUTION WIDTH SD (test code=RDW-SD) 91.1 fL 37.0-54.0 PLATELET COUNT (test code=PLT) 26 x10 3/uL 150-400 MEAN PLATELET VOLUME (test code=MPV) 10.9 fL 7.0-9.0 MANUAL DIFF REQUIRED (test code=MDIFF) YES WBC [id number] 11:12:00* Test Item Value Reference Range Comments ANISOCYTOSIS (test code=ANISO) PLATELET ESTIMATE (test code=PLTEST) THOUSAND ADEQUATE CBC W/AUTO [id number] 11:12:00* Test Item Value Reference Range Comments WHITE BLOOD CELL (test code=WBC) 0.54 x10 3/uL 4.5-11.0 RED BLOOD CELL (test code=RBC) 2.27 x10 6/uL 4.00-5.60 HEMOGLOBIN (test code=HGB) 8.3 g/dL 12.5-16.9 HEMATOCRIT (test code=HCT) 25.4 % 37.5-50.7 MEAN CELL VOLUME (test code=MCV) 111.9 fL 81.0-99.0 MEAN CELL HGB (test code=MCH) 36.6 pg 27.0-33.0 MEAN CELL HGB CONCETRATION (test code=MCHC) 32.7 g/dL 33.0-37.0 RED CELL DISTRIBUTION WIDTH CV (test code=RDW) 22.7 % 11.5-14.5 RED CELL DISTRIBUTION WIDTH SD (test code=RDW-SD) 91.1 fL 37.0-54.0 PLATELET COUNT (test code=PLT) 26 x10 3/uL 150-400 MEAN PLATELET VOLUME (test code=MPV) 10.9 fL 7.0-9.0 MANUAL DIFF REQUIRED (test code=MDIFF) YES WBC [id number] 11:12:00* Test Item Value Reference Range Comments ANISOCYTOSIS (test code=ANISO) PLATELET ESTIMATE (test code=PLTEST) THOUSAND ADEQUATE [id number] 09:02:00* Test Item Value Reference Range Comments GLUBED (test code=GLUBED) 108 MG/DL 70-110 Performed by certified sealing machine operator at [facility] BASIC METABOLIC [id number] 08:42:00* Test Item Value Reference Range Comments SODIUM (test code=NA) 140 mEq/L 134-147 POTASSIUM (test code=K) 3.9 mEq/L 3.4-5.0 CHLORIDE (test code=CL) 109 mEq/L 100-108 CARBON DIOXIDE (test code=CO2) 24 mEq/L 21-33 ANION GAP (test code=GAP) 11 0-20 GLUCOSE (test code=GLU) 102 mg/dL 70-110 BLOOD UREA NITROGEN (test code=BUN) 26 mg/dL 7-18 GLOMERULAR FILTRATION RATE (test code=GFR) 57.5 70-80 Units of measure=ml/min/1.73 m2 CREATININE (test code=CREAT) 1.2 mg/dL 0.6-1.3 CALCIUM (test code=CA) 8.1 mg/dL 8.0-10.5 CBC W/AUTO [id number] 07:58:00* Test Item Value Reference Range Comments WHITE BLOOD CELL (test code=WBC) 0.54 x10 3/uL 4.5-11.0 RED BLOOD CELL (test code=RBC) 2.27 x10 6/uL 4.00-5.60 HEMOGLOBIN (test code=HGB) 8.3 g/dL 12.5-16.9 HEMATOCRIT (test code=HCT) 25.4 % 37.5-50.7 MEAN CELL VOLUME (test code=MCV) 111.9 fL 81.0-99.0 MEAN CELL HGB (test code=MCH) 36.6 pg 27.0-33.0 MEAN CELL HGB CONCETRATION (test code=MCHC) 32.7 g/dL 33.0-37.0 RED CELL DISTRIBUTION WIDTH CV (test code=RDW) 22.7 % 11.5-14.5 RED CELL DISTRIBUTION WIDTH SD (test code=RDW-SD) 91.1 fL 37.0-54.0 PLATELET COUNT (test code=PLT) 26 x10 3/uL 150-400 MEAN PLATELET VOLUME (test code=MPV) 10.9 fL 7.0-9.0 LYMPHOCYTE % (test code=LY%) % 14.0-32.0 MANUAL DIFF REQUIRED (test code=MDIFF) [id number] 21:13:00* Test Item Value Reference Range Comments GLUBED (test code=GLUBED) 149 MG/DL 70-110 Performed by certified sealing machine operator at [facility] [id number] 16:17:00* Test Item Value Reference Range Comments GLUBED (test code=GLUBED) 123 MG/DL 70-110 Performed by certified sealing machine operator at [facility] [id number] 11:24:00* Test Item Value Reference Range Comments GLUBED (test code=GLUBED) 209 MG/DL 70-110 Performed by certified sealing machine operator at [facility] CBC W/AUTO [id number] 10:35:00* Test Item Value Reference Range Comments WHITE BLOOD CELL (test code=WBC) 0.61 x10 3/uL 4.5-11.0 RED BLOOD CELL (test code=RBC) 2.16 x10 6/uL 4.00-5.60 HEMOGLOBIN (test code=HGB) 7.9 g/dL 12.5-16.9 HEMATOCRIT (test code=HCT) 24.1 % 37.5-50.7 MEAN CELL VOLUME (test code=MCV) 111.6 fL 81.0-99.0 MEAN CELL HGB (test code=MCH) 36.6 pg 27.0-33.0 MEAN CELL HGB CONCETRATION (test code=MCHC) 32.8 g/dL 33.0-37.0 RED CELL DISTRIBUTION WIDTH CV (test code=RDW) 22.9 % 11.5-14.5 RED CELL DISTRIBUTION WIDTH SD (test code=RDW-SD) 92.8 fL 37.0-54.0 PLATELET COUNT (test code=PLT) 31 x10 3/uL 150-400 MEAN PLATELET VOLUME (test code=MPV) 10.4 fL 7.0-9.0 MANUAL DIFF REQUIRED (test code=MDIFF) YES WBC [id number] 10:35:00* Test Item Value Reference Range Comments SEGMENTED NEUTROPHILS (test code=SEG) 11.3 % 37-69 LYMPHOCYTE (test code=LYMPH) 87.7 % 23-55 EOSINOPHIL (test code=EOS) 1.0 % 0.0-4.0 NUCLEATED RED BLOOD CELL (test code=NRBC) 0.9 % POIKILOCYTOSIS (test code=POIK) 1+ ANISOCYTOSIS (test code=ANISO) 2+ MACROCYTOSIS (test code=MACR) 1+ SPHEROCYTES (test code=SPH) 1+ PLATELET ESTIMATE (test code=PLTEST) 48-60 THOUSAND ADEQUATE PLATELET MORPHOLOGY (test code=PLTMORPH) NORMAL CBC W/AUTO [id number] 10:30:00* Test Item Value Reference Range Comments WHITE BLOOD CELL (test code=WBC) 0.61 x10 3/uL 4.5-11.0 RED BLOOD CELL (test code=RBC) 2.16 x10 6/uL 4.00-5.60 HEMOGLOBIN (test code=HGB) 7.9 g/dL 12.5-16.9 HEMATOCRIT (test code=HCT) 24.1 % 37.5-50.7 MEAN CELL VOLUME (test code=MCV) 111.6 fL 81.0-99.0 MEAN CELL HGB (test code=MCH) 36.6 pg 27.0-33.0 MEAN CELL HGB CONCETRATION (test code=MCHC) 32.8 g/dL 33.0-37.0 RED CELL DISTRIBUTION WIDTH CV (test code=RDW) 22.9 % 11.5-14.5 RED CELL DISTRIBUTION WIDTH SD (test code=RDW-SD) 92.8 fL 37.0-54.0 PLATELET COUNT (test code=PLT) 31 x10 3/uL 150-400 MEAN PLATELET VOLUME (test code=MPV) 10.4 fL 7.0-9.0 MANUAL DIFF REQUIRED (test code=MDIFF) YES WBC [id number] 10:30:00* Test Item Value Reference Range Comments ANISOCYTOSIS (test code=ANISO) PLATELET ESTIMATE (test code=PLTEST) THOUSAND ADEQUATE CBC W/AUTO [id number] 10:30:00* Test Item Value Reference Range Comments WHITE BLOOD CELL (test code=WBC) 0.61 x10 3/uL 4.5-11.0 RED BLOOD CELL (test code=RBC) 2.16 x10 6/uL 4.00-5.60 HEMOGLOBIN (test code=HGB) 7.9 g/dL 12.5-16.9 HEMATOCRIT (test code=HCT) 24.1 % 37.5-50.7 MEAN CELL VOLUME (test code=MCV) 111.6 fL 81.0-99.0 MEAN CELL HGB (test code=MCH) 36.6 pg 27.0-33.0 MEAN CELL HGB CONCETRATION (test code=MCHC) 32.8 g/dL 33.0-37.0 RED CELL DISTRIBUTION WIDTH CV (test code=RDW) 22.9 % 11.5-14.5 RED CELL DISTRIBUTION WIDTH SD (test code=RDW-SD) 92.8 fL 37.0-54.0 PLATELET COUNT (test code=PLT) 31 x10 3/uL 150-400 MEAN PLATELET VOLUME (test code=MPV) 10.4 fL 7.0-9.0 MANUAL DIFF REQUIRED (test code=MDIFF) YES WBC [id number] 10:30:00* Test Item Value Reference Range Comments ANISOCYTOSIS (test code=ANISO) PLATELET ESTIMATE (test code=PLTEST) THOUSAND ADEQUATE [id number] 08:09:00* Test Item Value Reference Range Comments GLUBED (test code=GLUBED) 83 MG/DL 70-110 Performed by certified sealing machine operator at [facility] CBC W/AUTO [id number] 05:12:00* Test Item Value Reference Range Comments WHITE BLOOD CELL (test code=WBC) 0.61 x10 3/uL 4.5-11.0 RED BLOOD CELL (test code=RBC) 2.16 x10 6/uL 4.00-5.60 HEMOGLOBIN (test code=HGB) 7.9 g/dL 12.5-16.9 HEMATOCRIT (test code=HCT) 24.1 % 37.5-50.7 MEAN CELL VOLUME (test code=MCV) 111.6 fL 81.0-99.0 MEAN CELL HGB (test code=MCH) 36.6 pg 27.0-33.0 MEAN CELL HGB CONCETRATION (test code=MCHC) 32.8 g/dL 33.0-37.0 RED CELL DISTRIBUTION WIDTH CV (test code=RDW) 22.9 % 11.5-14.5 RED CELL DISTRIBUTION WIDTH SD (test code=RDW-SD) 92.8 fL 37.0-54.0 PLATELET COUNT (test code=PLT) 31 x10 3/uL 150-400 MEAN PLATELET VOLUME (test code=MPV) 10.4 fL 7.0-9.0 LYMPHOCYTE % (test code=LY%) % 14.0-32.0 MANUAL DIFF REQUIRED (test code=MDIFF) BASIC METABOLIC [id number] 05:08:00* Test Item Value Reference Range Comments SODIUM (test code=NA) 142 mEq/L 134-147 POTASSIUM (test code=K) 3.8 mEq/L 3.4-5.0 CHLORIDE (test code=CL) 109 mEq/L 100-108 CARBON DIOXIDE (test code=CO2) 26 mEq/L 21-33 ANION GAP (test code=GAP) 11 0-20 GLUCOSE (test code=GLU) 94 mg/dL 70-110 BLOOD UREA NITROGEN (test code=BUN) 30 mg/dL 7-18 GLOMERULAR FILTRATION RATE (test code=GFR) 57.5 70-80 Units of measure=ml/min/1.73 m2 CREATININE (test code=CREAT) 1.2 mg/dL 0.6-1.3 CALCIUM (test code=CA) 8.0 mg/dL 8.0-10.5 [id number] 17:53:00* Test Item Value Reference Range Comments GLUBED (test code=GLUBED) 135 MG/DL 70-110 Performed by certified sealing machine operator at [facility] [id number] 16:14:00* Test Item Value Reference Range Comments GLUBED (test code=GLUBED) 95 MG/DL 70-110 Performed by certified sealing machine operator at [facility] CBC W/AUTO [id number] 09:23:00* Test Item Value Reference Range Comments WHITE BLOOD CELL (test code=WBC) 0.76 x10 3/uL 4.5-11.0 RED BLOOD CELL (test code=RBC) 2.05 x10 6/uL 4.00-5.60 HEMOGLOBIN (test code=HGB) 7.6 g/dL 12.5-16.9 HEMATOCRIT (test code=HCT) 23.4 % 37.5-50.7 MEAN CELL VOLUME (test code=MCV) 114.1 fL 81.0-99.0 MEAN CELL HGB (test code=MCH) 37.1 pg 27.0-33.0 MEAN CELL HGB CONCETRATION (test code=MCHC) 32.5 g/dL 33.0-37.0 RED CELL DISTRIBUTION WIDTH CV (test code=RDW) 24.1 % 11.5-14.5 RED CELL DISTRIBUTION WIDTH SD (test code=RDW-SD) 97.7 fL 37.0-54.0 PLATELET COUNT (test code=PLT) 40 x10 3/uL 150-400 MEAN PLATELET VOLUME (test code=MPV) 10.6 fL 7.0-9.0 MANUAL DIFF REQUIRED (test code=MDIFF) YES WBC [id number] 09:23:00* Test Item Value Reference Range Comments SEGMENTED NEUTROPHILS (test code=SEG) 17.4 % 37-69 LYMPHOCYTE (test code=LYMPH) 80.8 % 23-55 MONOCYTE (test code=MON) 0.9 % 0-10 MYELOCYTE (test code=MYELO) 0.9 % 0.0-0.0 NUCLEATED RED BLOOD CELL (test code=NRBC) 1.8 % POIKILOCYTOSIS (test code=POIK) 1+ ANISOCYTOSIS (test code=ANISO) 2+ MACROCYTOSIS (test code=MACR) 2+ SPHEROCYTES (test code=SPH) 1+ PLATELET ESTIMATE (test code=PLTEST) 96-120 THOUSAND ADEQUATE PLATELET MORPHOLOGY (test code=PLTMORPH) LARGE PLATELETS CBC W/AUTO [id number] 09:08:00* Test Item Value Reference Range Comments WHITE BLOOD CELL (test code=WBC) 0.76 x10 3/uL 4.5-11.0 RED BLOOD CELL (test code=RBC) 2.05 x10 6/uL 4.00-5.60 HEMOGLOBIN (test code=HGB) 7.6 g/dL 12.5-16.9 HEMATOCRIT (test code=HCT) 23.4 % 37.5-50.7 MEAN CELL VOLUME (test code=MCV) 114.1 fL 81.0-99.0 MEAN CELL HGB (test code=MCH) 37.1 pg 27.0-33.0 MEAN CELL HGB CONCETRATION (test code=MCHC) 32.5 g/dL 33.0-37.0 RED CELL DISTRIBUTION WIDTH CV (test code=RDW) 24.1 % 11.5-14.5 RED CELL DISTRIBUTION WIDTH SD (test code=RDW-SD) 97.7 fL 37.0-54.0 PLATELET COUNT (test code=PLT) 40 x10 3/uL 150-400 MEAN PLATELET VOLUME (test code=MPV) 10.6 fL 7.0-9.0 MANUAL DIFF REQUIRED (test code=MDIFF) YES WBC [id number] 09:08:00* Test Item Value Reference Range Comments ANISOCYTOSIS (test code=ANISO) PLATELET ESTIMATE (test code=PLTEST) THOUSAND ADEQUATE CBC W/AUTO [id number] 09:08:00* Test Item Value Reference Range Comments WHITE BLOOD CELL (test code=WBC) 0.76 x10 3/uL 4.5-11.0 RED BLOOD CELL (test code=RBC) 2.05 x10 6/uL 4.00-5.60 HEMOGLOBIN (test code=HGB) 7.6 g/dL 12.5-16.9 HEMATOCRIT (test code=HCT) 23.4 % 37.5-50.7 MEAN CELL VOLUME (test code=MCV) 114.1 fL 81.0-99.0 MEAN CELL HGB (test code=MCH) 37.1 pg 27.0-33.0 MEAN CELL HGB CONCETRATION (test code=MCHC) 32.5 g/dL 33.0-37.0 RED CELL DISTRIBUTION WIDTH CV (test code=RDW) 24.1 % 11.5-14.5 RED CELL DISTRIBUTION WIDTH SD (test code=RDW-SD) 97.7 fL 37.0-54.0 PLATELET COUNT (test code=PLT) 40 x10 3/uL 150-400 MEAN PLATELET VOLUME (test code=MPV) 10.6 fL 7.0-9.0 MANUAL DIFF REQUIRED (test code=MDIFF) YES WBC [id number] 09:08:00* Test Item Value Reference Range Comments ANISOCYTOSIS (test code=ANISO) PLATELET ESTIMATE (test code=PLTEST) THOUSAND ADEQUATE [id number] 08:28:00* Test Item Value Reference Range Comments GLUBED (test code=GLUBED) 105 MG/DL 70-110 Performed by certified sealing machine operator at [facility] BASIC METABOLIC [id number] 08:13:00* Test Item Value Reference Range Comments SODIUM (test code=NA) 142 mEq/L 134-147 POTASSIUM (test code=K) 4.2 mEq/L 3.4-5.0 CHLORIDE (test code=CL) 110 mEq/L 100-108 CARBON DIOXIDE (test code=CO2) 25 mEq/L 21-33 ANION GAP (test code=GAP) 11 0-20 GLUCOSE (test code=GLU) 105 mg/dL 70-110 BLOOD UREA NITROGEN (test code=BUN) 38 mg/dL 7-18 GLOMERULAR FILTRATION RATE (test code=GFR) 48.2 70-80 Units of measure=ml/min/1.73 m2 CREATININE (test code=CREAT) 1.4 mg/dL 0.6-1.3 CALCIUM (test code=CA) 8.0 mg/dL 8.0-10.5 [id number] 07:12:00* Test Item Value Reference Range Comments HAPTOGLOBIN (test code=HAPT) 74 mg/dL 34-200 Performed At: [address] [id number] Jarvis MD Ph:[phone] CBC W/AUTO [id number] 07:10:00* Test Item Value Reference Range Comments WHITE BLOOD CELL (test code=WBC) 0.76 x10 3/uL 4.5-11.0 RED BLOOD CELL (test code=RBC) 2.05 x10 6/uL 4.00-5.60 HEMOGLOBIN (test code=HGB) 7.6 g/dL 12.5-16.9 HEMATOCRIT (test code=HCT) 23.4 % 37.5-50.7 MEAN CELL VOLUME (test code=MCV) 114.1 fL 81.0-99.0 MEAN CELL HGB (test code=MCH) 37.1 pg 27.0-33.0 MEAN CELL HGB CONCETRATION (test code=MCHC) 32.5 g/dL 33.0-37.0 RED CELL DISTRIBUTION WIDTH CV (test code=RDW) 24.1 % 11.5-14.5 RED CELL DISTRIBUTION WIDTH SD (test code=RDW-SD) 97.7 fL 37.0-54.0 PLATELET COUNT (test code=PLT) 40 x10 3/uL 150-400 MEAN PLATELET VOLUME (test code=MPV) 10.6 fL 7.0-9.0 LYMPHOCYTE % (test code=LY%) % 14.0-32.0 MANUAL DIFF REQUIRED (test code=MDIFF) [id number] 21:03:00* Test Item Value Reference Range Comments GLUBED (test code=GLUBED) 209 MG/DL 70-110 Performed by certified sealing machine operator at [facility] [id number] 16:42:00* Test Item Value Reference Range Comments GLUBED (test code=GLUBED) 174 MG/DL 70-110 Performed by certified sealing machine operator at [facility] CBC W/AUTO [id number] 12:22:00* Test Item Value Reference Range Comments WHITE BLOOD CELL (test code=WBC) 0.55 x10 3/uL 4.5-11.0 RED BLOOD CELL (test code=RBC) 2.08 x10 6/uL 4.00-5.60 HEMOGLOBIN (test code=HGB) 7.7 g/dL 12.5-16.9 HEMATOCRIT (test code=HCT) 23.4 % 37.5-50.7 MEAN CELL VOLUME (test code=MCV) 112.5 fL 81.0-99.0 MEAN CELL HGB (test code=MCH) 37.0 pg 27.0-33.0 MEAN CELL HGB CONCETRATION (test code=MCHC) 32.9 g/dL 33.0-37.0 RED CELL DISTRIBUTION WIDTH CV (test code=RDW) 24.3 % 11.5-14.5 RED CELL DISTRIBUTION WIDTH SD (test code=RDW-SD) 97.2 fL 37.0-54.0 PLATELET COUNT (test code=PLT) 48 x10 3/uL 150-400 MEAN PLATELET VOLUME (test code=MPV) 10.5 fL 7.0-9.0 MANUAL DIFF REQUIRED (test code=MDIFF) YES WBC [id number] 12:22:00* Test Item Value Reference Range Comments SEGMENTED NEUTROPHILS (test code=SEG) 27 % 37-69 LYMPHOCYTE (test code=LYMPH) 66 % 23-55 MONOCYTE (test code=MON) 7 % 0-10 NUCLEATED RED BLOOD CELL (test code=NRBC) 1 % POIKILOCYTOSIS (test code=POIK) 1+ ANISOCYTOSIS (test code=ANISO) 2+ SPHEROCYTES (test code=SPH) 1+ PLATELET ESTIMATE (test code=PLTEST) 84-105 THOUSAND ADEQUATE PLATELET MORPHOLOGY (test code=PLTMORPH) NORMAL CBC W/AUTO [id number] 12:13:00* Test Item Value Reference Range Comments WHITE BLOOD CELL (test code=WBC) 0.55 x10 3/uL 4.5-11.0 RED BLOOD CELL (test code=RBC) 2.08 x10 6/uL 4.00-5.60 HEMOGLOBIN (test code=HGB) 7.7 g/dL 12.5-16.9 HEMATOCRIT (test code=HCT) 23.4 % 37.5-50.7 MEAN CELL VOLUME (test code=MCV) 112.5 fL 81.0-99.0 MEAN CELL HGB (test code=MCH) 37.0 pg 27.0-33.0 MEAN CELL HGB CONCETRATION (test code=MCHC) 32.9 g/dL 33.0-37.0 RED CELL DISTRIBUTION WIDTH CV (test code=RDW) 24.3 % 11.5-14.5 RED CELL DISTRIBUTION WIDTH SD (test code=RDW-SD) 97.2 fL 37.0-54.0 PLATELET COUNT (test code=PLT) 48 x10 3/uL 150-400 MEAN PLATELET VOLUME (test code=MPV) 10.5 fL 7.0-9.0 MANUAL DIFF REQUIRED (test code=MDIFF) YES WBC [id number] 12:13:00* Test Item Value Reference Range Comments ANISOCYTOSIS (test code=ANISO) PLATELET ESTIMATE (test code=PLTEST) THOUSAND ADEQUATE CBC W/AUTO [id number] 12:13:00* Test Item Value Reference Range Comments WHITE BLOOD CELL (test code=WBC) 0.55 x10 3/uL 4.5-11.0 RED BLOOD CELL (test code=RBC) 2.08 x10 6/uL 4.00-5.60 HEMOGLOBIN (test code=HGB) 7.7 g/dL 12.5-16.9 HEMATOCRIT (test code=HCT) 23.4 % 37.5-50.7 MEAN CELL VOLUME (test code=MCV) 112.5 fL 81.0-99.0 MEAN CELL HGB (test code=MCH) 37.0 pg 27.0-33.0 MEAN CELL HGB CONCETRATION (test code=MCHC) 32.9 g/dL 33.0-37.0 RED CELL DISTRIBUTION WIDTH CV (test code=RDW) 24.3 % 11.5-14.5 RED CELL DISTRIBUTION WIDTH SD (test code=RDW-SD) 97.2 fL 37.0-54.0 PLATELET COUNT (test code=PLT) 48 x10 3/uL 150-400 MEAN PLATELET VOLUME (test code=MPV) 10.5 fL 7.0-9.0 MANUAL DIFF REQUIRED (test code=MDIFF) YES WBC [id number] 12:13:00* Test Item Value Reference Range Comments ANISOCYTOSIS (test code=ANISO) PLATELET ESTIMATE (test code=PLTEST) THOUSAND ADEQUATE [id number] 12:00:00* Test Item Value Reference Range Comments GLUBED (test code=GLUBED) 144 MG/DL 70-110 Performed by certified sealing machine operator at [facility] [id number] 12:00:00* Test Item Value Reference Range Comments GLUBED (test code=GLUBED) 163 MG/DL 70-110 Performed by certified sealing machine operator at [facility] CBC W/AUTO [id number] 08:39:00* Test Item Value Reference Range Comments WHITE BLOOD CELL (test code=WBC) 0.55 x10 3/uL 4.5-11.0 RED BLOOD CELL (test code=RBC) 2.08 x10 6/uL 4.00-5.60 HEMOGLOBIN (test code=HGB) 7.7 g/dL 12.5-16.9 HEMATOCRIT (test code=HCT) 23.4 % 37.5-50.7 MEAN CELL VOLUME (test code=MCV) 112.5 fL 81.0-99.0 MEAN CELL HGB (test code=MCH) 37.0 pg 27.0-33.0 MEAN CELL HGB CONCETRATION (test code=MCHC) 32.9 g/dL 33.0-37.0 RED CELL DISTRIBUTION WIDTH CV (test code=RDW) 24.3 % 11.5-14.5 RED CELL DISTRIBUTION WIDTH SD (test code=RDW-SD) 97.2 fL 37.0-54.0 PLATELET COUNT (test code=PLT) 48 x10 3/uL 150-400 MEAN PLATELET VOLUME (test code=MPV) 10.5 fL 7.0-9.0 LYMPHOCYTE % (test code=LY%) % 14.0-32.0 MANUAL DIFF REQUIRED (test code=MDIFF) BASIC METABOLIC [id number] 08:22:00* Test Item Value Reference Range Comments SODIUM (test code=NA) 139 mEq/L 134-147 POTASSIUM (test code=K) 4.4 mEq/L 3.4-5.0 CHLORIDE (test code=CL) 109 mEq/L 100-108 CARBON DIOXIDE (test code=CO2) 26 mEq/L 21-33 ANION GAP (test code=GAP) 8 0-20 GLUCOSE (test code=GLU) 188 mg/dL 70-110 BLOOD UREA NITROGEN (test code=BUN) 35 mg/dL 7-18 GLOMERULAR FILTRATION RATE (test code=GFR) 44.5 70-80 Units of measure=ml/min/1.73 m2 CREATININE (test code=CREAT) 1.5 mg/dL 0.6-1.3 CALCIUM (test code=CA) 8.2 mg/dL 8.0-10.5 [id number] 21:13:00* Test Item Value Reference Range Comments GLUBED (test code=GLUBED) 254 MG/DL 70-110 Performed by certified sealing machine operator at [facility] [id number] 16:24:00* Test Item Value Reference Range Comments GLUBED (test code=GLUBED) 212 MG/DL 70-110 Performed by certified sealing machine operator at [facility] [id number] 11:47:00* Test Item Value Reference Range Comments GLUBED (test code=GLUBED) 149 MG/DL 70-110 Performed by certified sealing machine operator at [facility] CBC W/AUTO [id number] 10:43:00* Test Item Value Reference Range Comments WHITE BLOOD CELL (test code=WBC) 0.55 x10 3/uL 4.5-11.0 RED BLOOD CELL (test code=RBC) 1.86 x10 6/uL 4.00-5.60 HEMOGLOBIN (test code=HGB) 6.9 g/dL 12.5-16.9 HEMATOCRIT (test code=HCT) 21.4 % 37.5-50.7 MEAN CELL VOLUME (test code=MCV) 115.1 fL 81.0-99.0 MEAN CELL HGB (test code=MCH) 37.1 pg 27.0-33.0 MEAN CELL HGB CONCETRATION (test code=MCHC) 32.2 g/dL 33.0-37.0 PLATELET COUNT (test code=PLT) 9 x10 3/uL 150-400 MEAN PLATELET VOLUME (test code=MPV) 8.8 fL 7.0-9.0 MANUAL DIFF REQUIRED (test code=MDIFF) YES WBC [id number] 10:43:00* Test Item Value Reference Range Comments SEGMENTED NEUTROPHILS (test code=SEG) 21.1 % 37-69 LYMPHOCYTE (test code=LYMPH) 75.2 % 23-55 MONOCYTE (test code=MON) 0.9 % 0-10 EOSINOPHIL (test code=EOS) 1.9 % 0.0-4.0 BLAST (test code=BLAST) 0.9 % 0.0-0.0 NUCLEATED RED BLOOD CELL (test code=NRBC) 0.9 % ANISOCYTOSIS (test code=ANISO) 3+ MACROCYTOSIS (test code=MACR) 3+ PLATELET ESTIMATE (test code=PLTEST) Decreased THOUSAND ADEQUATE PLT.EST.(15) CBC W/AUTO [id number] 10:24:00* Test Item Value Reference Range Comments WHITE BLOOD CELL (test code=WBC) 0.55 x10 3/uL 4.5-11.0 RED BLOOD CELL (test code=RBC) 1.86 x10 6/uL 4.00-5.60 HEMOGLOBIN (test code=HGB) 6.9 g/dL 12.5-16.9 HEMATOCRIT (test code=HCT) 21.4 % 37.5-50.7 MEAN CELL VOLUME (test code=MCV) 115.1 fL 81.0-99.0 MEAN CELL HGB (test code=MCH) 37.1 pg 27.0-33.0 MEAN CELL HGB CONCETRATION (test code=MCHC) 32.2 g/dL 33.0-37.0 PLATELET COUNT (test code=PLT) 9 x10 3/uL 150-400 MEAN PLATELET VOLUME (test code=MPV) 8.8 fL 7.0-9.0 MANUAL DIFF REQUIRED (test code=MDIFF) YES WBC [id number] 10:24:00* Test Item Value Reference Range Comments ANISOCYTOSIS (test code=ANISO) PLATELET ESTIMATE (test code=PLTEST) THOUSAND ADEQUATE CBC W/AUTO [id number] 10:24:00* Test Item Value Reference Range Comments WHITE BLOOD CELL (test code=WBC) 0.55 x10 3/uL 4.5-11.0 RED BLOOD CELL (test code=RBC) 1.86 x10 6/uL 4.00-5.60 HEMOGLOBIN (test code=HGB) 6.9 g/dL 12.5-16.9 HEMATOCRIT (test code=HCT) 21.4 % 37.5-50.7 MEAN CELL VOLUME (test code=MCV) 115.1 fL 81.0-99.0 MEAN CELL HGB (test code=MCH) 37.1 pg 27.0-33.0 MEAN CELL HGB CONCETRATION (test code=MCHC) 32.2 g/dL 33.0-37.0 PLATELET COUNT (test code=PLT) 9 x10 3/uL 150-400 MEAN PLATELET VOLUME (test code=MPV) 8.8 fL 7.0-9.0 MANUAL DIFF REQUIRED (test code=MDIFF) YES WBC [id number] 10:24:00* Test Item Value Reference Range Comments ANISOCYTOSIS (test code=ANISO) PLATELET ESTIMATE (test code=PLTEST) THOUSAND ADEQUATE CBC W/AUTO [id number] 08:30:00* Test Item Value Reference Range Comments WHITE BLOOD CELL (test code=WBC) 0.55 x10 3/uL 4.5-11.0 RED BLOOD CELL (test code=RBC) 1.86 x10 6/uL 4.00-5.60 HEMOGLOBIN (test code=HGB) 6.9 g/dL 12.5-16.9 HEMATOCRIT (test code=HCT) 21.4 % 37.5-50.7 MEAN CELL VOLUME (test code=MCV) 115.1 fL 81.0-99.0 MEAN CELL HGB (test code=MCH) 37.1 pg 27.0-33.0 MEAN CELL HGB CONCETRATION (test code=MCHC) 32.2 g/dL 33.0-37.0 PLATELET COUNT (test code=PLT) 9 x10 3/uL 150-400 MEAN PLATELET VOLUME (test code=MPV) 8.8 fL 7.0-9.0 LYMPHOCYTE % (test code=LY%) % 14.0-32.0 MANUAL DIFF REQUIRED (test code=MDIFF) BASIC METABOLIC [id number] 08:11:00* Test Item Value Reference Range Comments SODIUM (test code=NA) 141 mEq/L 134-147 POTASSIUM (test code=K) 4.0 mEq/L 3.4-5.0 CHLORIDE (test code=CL) 109 mEq/L 100-108 CARBON DIOXIDE (test code=CO2) 25 mEq/L 21-33 ANION GAP (test code=GAP) 11 0-20 GLUCOSE (test code=GLU) 105 mg/dL 70-110 BLOOD UREA NITROGEN (test code=BUN) 29 mg/dL 7-18 GLOMERULAR FILTRATION RATE (test code=GFR) 44.5 70-80 Units of measure=ml/min/1.73 m2 CREATININE (test code=CREAT) 1.5 mg/dL 0.6-1.3 CALCIUM (test code=CA) 8.1 mg/dL 8.0-10.5 [id number] 07:45:00* Test Item Value Reference Range Comments GLUBED (test code=GLUBED) 106 MG/DL 70-110 Performed by certified sealing machine operator at [facility] [id number] 21:07:00* Test Item Value Reference Range Comments GLUBED (test code=GLUBED) 120 MG/DL 70-110 Performed by certified sealing machine operator at [facility] PROTEIN ELECTROPHORESIS [id number] 19:10:00* Test Item Value Reference Range Comments TOTAL PROTEIN (test code=PROTE) ALBUMIN (test code=ALBE) [id number] (test code=A1G) [id number] (test code=A2G) BETA GLOBULIN (test code=BG) GAMMA GLOBULIN (test code=GG) M-SPIKE,SERUM (test code=MSPIKES) GLOBULIN ELECT (test code=GLOBE) ALBUMIN/GLOBULIN RATIO (test code=AGE) PROT.ELECTROPH.INTERPRETATION (test code=ELEINT) LACTIC DEHYDROGENASE(LDH)2018-09-08 19:10:00* Test Item Value Reference Range Comments LACTIC DEHYDROGENASE(LDH) (test code=LDH) 267 IUnits/L 87-241 TOTAL IRON BINDING [id number] 19:10:00* Test Item Value Reference Range Comments SERUM IRON (test code=IRON) 198 mcg/dL 35-150 TOTAL IRON BINDING CAPACITY (test code=TIBC) 194 mcg/dL 260-445 UIBC (test code=UIBC) -4 mcg/dL IRON SATURATION (test code=FESAT) 102.1 % 14-34 VITAMIN [id number] 19:10:00* Test Item Value Reference Range Comments VITAMIN B12 (test code=VITB12) 328 pg/mL 193-986 FOLIC [id number] 19:10:00* Test Item Value Reference Range Comments FOLIC ACID (test code=FOL) 7.2 ng/mL 3.1-17.5 THYROID STIMULATING [id number] 19:10:00* Test Item Value Reference Range Comments THYROID STIMULATING HORMONE (test code=TSH) 0.98 0.42-5.47 Results in [employer]die-[employer] Units/mL [id number] 19:10:00* Test Item Value Reference Range Comments FERRITIN (test code=REMBERTO) 724.0 ng/mL 23.9-336.2 CBC W/AUTO [id number] 16:03:00* Test Item Value Reference Range Comments WHITE BLOOD CELL (test code=WBC) 0.64 x10 3/uL 4.5-11.0 RED BLOOD CELL (test code=RBC) 1.44 x10 6/uL 4.00-5.60 HEMOGLOBIN (test code=HGB) 5.9 g/dL 12.5-16.9 HEMATOCRIT (test code=HCT) 18.7 % 37.5-50.7 MEAN CELL VOLUME (test code=MCV) 129.9 fL 81.0-99.0 MEAN CELL HGB (test code=MCH) 41.0 pg 27.0-33.0 MEAN CELL HGB CONCETRATION (test code=MCHC) 31.6 g/dL 33.0-37.0 RED CELL DISTRIBUTION WIDTH CV (test code=RDW) 17.6 % 11.5-14.5 RED CELL DISTRIBUTION WIDTH SD (test code=RDW-SD) 83.1 fL 37.0-54.0 PLATELET COUNT (test code=PLT) 15 x10 3/uL 150-400 IMMATURE PLATELET FRACTION (test code=IPF) 3.2 % 0.9-11.2 MEAN PLATELET VOLUME (test code=MPV) 11.0 fL 7.0-9.0 MANUAL DIFF REQUIRED (test code=MDIFF) YES WBC [id number] 16:03:00* Test Item Value Reference Range Comments SEGMENTED NEUTROPHILS (test code=SEG) 12.5 % 37-69 LYMPHOCYTE (test code=LYMPH) 81.2 % 23-55 REACTIVE LYMPH (test code=RELYMPH) 2.1 % MONOCYTE (test code=MON) 2.1 % 0-10 MYELOCYTE (test code=MYELO) 2.1 % 0.0-0.0 POLYCHROMASIA (test code=POLC) 1+ POIKILOCYTOSIS (test code=POIK) 1+ ANISOCYTOSIS (test code=ANISO) 1+ MACROCYTOSIS (test code=MACR) 2+ SPHEROCYTES (test code=SPH) 1+ PLATELET ESTIMATE (test code=PLTEST) 24-30 THOUSAND ADEQUATE PLATELET MORPHOLOGY (test code=PLTMORPH) NORMAL CBC W/AUTO [id number] 15:36:00* Test Item Value Reference Range Comments WHITE BLOOD CELL (test code=WBC) 0.64 x10 3/uL 4.5-11.0 RED BLOOD CELL (test code=RBC) 1.44 x10 6/uL 4.00-5.60 HEMOGLOBIN (test code=HGB) 5.9 g/dL 12.5-16.9 HEMATOCRIT (test code=HCT) 18.7 % 37.5-50.7 MEAN CELL VOLUME (test code=MCV) 129.9 fL 81.0-99.0 MEAN CELL HGB (test code=MCH) 41.0 pg 27.0-33.0 MEAN CELL HGB CONCETRATION (test code=MCHC) 31.6 g/dL 33.0-37.0 RED CELL DISTRIBUTION WIDTH CV (test code=RDW) 17.6 % 11.5-14.5 RED CELL DISTRIBUTION WIDTH SD (test code=RDW-SD) 83.1 fL 37.0-54.0 PLATELET COUNT (test code=PLT) 15 x10 3/uL 150-400 IMMATURE PLATELET FRACTION (test code=IPF) 3.2 % 0.9-11.2 MEAN PLATELET VOLUME (test code=MPV) 11.0 fL 7.0-9.0 MANUAL DIFF REQUIRED (test code=MDIFF) YES WBC [id number] 15:36:00* Test Item Value Reference Range Comments ANISOCYTOSIS (test code=ANISO) PLATELET ESTIMATE (test code=PLTEST) THOUSAND ADEQUATE CBC W/AUTO [id number] 15:36:00* Test Item Value Reference Range Comments WHITE BLOOD CELL (test code=WBC) 0.64 x10 3/uL 4.5-11.0 RED BLOOD CELL (test code=RBC) 1.44 x10 6/uL 4.00-5.60 HEMOGLOBIN (test code=HGB) 5.9 g/dL 12.5-16.9 HEMATOCRIT (test code=HCT) 18.7 % 37.5-50.7 MEAN CELL VOLUME (test code=MCV) 129.9 fL 81.0-99.0 MEAN CELL HGB (test code=MCH) 41.0 pg 27.0-33.0 MEAN CELL HGB CONCETRATION (test code=MCHC) 31.6 g/dL 33.0-37.0 RED CELL DISTRIBUTION WIDTH CV (test code=RDW) 17.6 % 11.5-14.5 RED CELL DISTRIBUTION WIDTH SD (test code=RDW-SD) 83.1 fL 37.0-54.0 PLATELET COUNT (test code=PLT) 15 x10 3/uL 150-400 IMMATURE PLATELET FRACTION (test code=IPF) 3.2 % 0.9-11.2 MEAN PLATELET VOLUME (test code=MPV) 11.0 fL 7.0-9.0 MANUAL DIFF REQUIRED (test code=MDIFF) YES WBC [id number] 15:36:00* Test Item Value Reference Range Comments ANISOCYTOSIS (test code=ANISO) PLATELET ESTIMATE (test code=PLTEST) THOUSAND ADEQUATE BASIC METABOLIC [id number] 15:28:00* Test Item Value Reference Range Comments SODIUM (test code=NA) 141 mEq/L 134-147 POTASSIUM (test code=K) 4.7 mEq/L 3.4-5.0 CHLORIDE (test code=CL) 110 mEq/L 100-108 CARBON DIOXIDE (test code=CO2) 26 mEq/L 21-33 ANION GAP (test code=GAP) 10 0-20 GLUCOSE (test code=GLU) 125 mg/dL 70-110 BLOOD UREA NITROGEN (test code=BUN) 32 mg/dL 7-18 GLOMERULAR FILTRATION RATE (test code=GFR) 38.5 70-80 Units of measure=ml/min/1.73 m2 CREATININE (test code=CREAT) 1.7 mg/dL 0.6-1.3 CALCIUM (test code=CA) 8.2 mg/dL 8.0-10.5
--- OUTSIDE RECORDS SUMMARY | 2018-10-10 16:28 | XMS REPORT | Summary of Care ---
Author Author Amy Lyon Organization Unknown Address Unknown Phone Unavailable Care Team Providers Care Lard Maker Name Role Phone Amy Lyon Unavailable Unavailable ODRA Leyva, YOLANDA Unavailable Unavailable ALAN Leyva, JESUS ALBERTO Unavailable Unavailable ROC D.OAngela, TIGIST Unavailable Unavailable ALAN BRASHER, JESUS ALBERTO Unavailable Unavailable KAMINI BRASHER [place], SAAEL Merino Unavailable Unavailable ADAM Leyva, JENIFER Unavailable Unavailable COTY BRASHER [place], DANISH Love Unavailable Unavailable ROC KING [place], TIGIST Unavailable Unavailable ADAM BRASHER [place], JENIFER FAIRCHILD Unavailable Unavailable Unavailable Unavailable Functional Status Name Dates Details Functional status health issues are not documented Status: Name Dates Details Cognitive status health issues are not documented Status: Problems Name Dates Details Allergic rhinitis (477.9, J30.9) Status: Active Osteoarthrosis (715.90, M19.90) Status: Active Chronic low back pain (724.2, M54.5) Status: Active Risk for falls (V15.88, Z91.81) Status: Active Influenza vaccine needed (V04.81, Z23) Status: Active Need for pneumococcal vaccine (V03.82, Z23) Status: Active Colon cancer screening (V76.51, Z12.11) Status: Active Thrombocytopenia (287.5, D69.6) Status: Active Pancytopenia (284.19, D61.818) Status: Active Chest pain (786.50, R07.9) Status: Active Anginal pain (413.9, I20.9) Status: Active Encounter for mini-mental status examination Status: Active At low risk for fall (V49.89, Z91.81) Status: Active Depression screen (V79.0, Z13.31) Status: Active Advance care planning (V65.49, Z71.89) Status: Active Abdominal bloating (787.3, R14.0) Status: Active Small bowel obstruction (560.9, K56.609) Status: Active History of second degree heart block (V12.50, Z86.79) Status: Active Cyst of pancreas (577.2, K86.2) Status: Active 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, 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 Urinary tract infection associated with catheterization of urinary tract, unspecified indwelling urinary catheter type, subsequent encounter (V58.89, T83.511D) Status: Active Arteriosclerosis of coronary artery (414.00, I25.10) Status: Active Acute urinary retention (788.29, R33.8) Status: Active Urinary retention due to benign prostatic hyperplasia (600.91, N40.1) Status: Active Viral syndrome (079.99, B34.9) Status: Active 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, 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, 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, E11.59) Status: Active Hyperlipidemia (272.4, E78.5) Status: Active Hypothyroidism (244.9, E03.9) Status: Active Vitamin D deficiency (268.9, E55.9) Status: Active Stage III chronic kidney disease (585.3, N18.3) Status: Active Fever (780.60, R50.9) Status: Active Essential (primary) hypertension (401.9, I10) Status: Active Diabetes mellitus with peripheral circulatory disorder (250.70, E11.51) Status: Active Congestive heart failure (428.0, I50.9) Status: Active Benign enlargement of prostate (600.00, N40.0) Status: Active Anemia (285.9, D64.9) Status: Active Medications Name Dates Details BD Pen Needle Short U/F 31G X 8 MM USE 6 TIMES A DAY DIRECTED Quantity: 6 JESUS ALBERTO PHILLIPS M.D. * Start : 12-Feb-2018 Active Each Synthroid 100 MCG Oral Tablet 1 tab a day; * Quantity: 90 Refills: 1 JESUS ALBERTO PHILLIPS M.D. Active Losartan Potassium 25 MG Oral Tablet Take one-half tablet by mouth daily * Quantity: 45 Refills: 1 ROC Gabriel.TIGIST Christianson * Start : 25-Aug-2017 Active Aspirin 81 MG TABS TAKE 1 TABLET DAILY. * Refills: 0 Active Vitamin D 1000 UNIT Oral Tablet Take 3 capsules a day; Per Pt 01-28-16 * Refills: 0 JESUS ALBERTO PHILLIPS M.D. Active Lantus SoloStar 100 UNIT/ML Subcutaneous Solution Pen-injector INJECT SUBCUTANEOUSLY 30 UNITS IN THE MORNINGS; UP TO 60 UNITS DAILY * Quantity: 4 Refills: 1 JESUS ALBERTO PHILLIPS M.D. * Start : 03-Feb-2012 Active 5 x 3 ML Pen Insulin Syringe 30G X 1/2" 0.5 ML 2 a day * Quantity: 200 Refills: 6 JESUS ALBERTO PHILLIPS M.D. * Start : 03-Feb-2012 Active Handicap Parking Pt requires permanent handicap placard for gait disturbance and inability to [facility] long distances * Quantity: 1 Refills: 0 YOLANDA JOHN M.D. * Start : 14-Jun-2013 Active Ariana Sprague Fine Check BG 4x a day * Quantity: 4 Refills: 4 JESUS ALBERTO PHILLIPS M.D. * Start : 25-Apr-2014 Active 100 Miscellaneous Box Carvedilol 3.125 MG Oral Tablet TAKE 1 TABLET BY MOUTH DAILY * Quantity: 90 Refills: 1 YEH D.O., TIGIST * Start : 11-Aug-2014 Active Arthritis Pain Relief 650 MG Oral Tablet Extended Release TAKE 1 TABLET 2 TIMES DAILY NEEDED. * Refills: 0 Active Furosemide 20 MG Oral Tablet Take one-half tablet by mouth daily * Quantity: 45 Refills: 1 YEH D.O., TIGIST * Start : 25-Aug-2017 Active Ariana Verio In Vitro Strip Check BG 4x a day * Quantity: 4 Refills: 3 JESUS ALBERTO PHILLIPS M.D. * Start : 28-Jan-2016 Active 100 Strip Box HumaLOG KwikPen 200 UNIT/ML Subcutaneous Solution Pen-injector INJECT SUBCUTANEOUSLY 16 TO 18 UNITS BEFORE MEALS; MAY TAKE 8-10 FOR SMALL MEALS ;. MAX DAILY DOSE 90 UNITS * Quantity: 7 Refills: 1 JESUS ALBERTO PHILLIPS M.D. 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 History of Osteoarthritis (V13.4) Status: Resolved Procedures Procedure Dates Details History of Tonsillectomy Completed History of Cataract Surgery Completed Immunization Name Dates Details Influenza on: 11-Dec-2008 Pneumo on: 15-Mar-2009 Influenza on: 09-Oct-2009 Td on: Dec-2009 Influenza on: 16-Dec-2011 Fluzone INJ Lot #: [id number] on: 02-Nov-2012 Fluzone INJ Lot #: [id number] on: 05-Dec-2013 Fluzone Quadrivalent Intramuscular Suspension Lot #: [id number] on: 28-Dec-2014 Prevnar 13 Intramuscular Suspension Lot #: [id number] on: 28-Dec-2014 Fluzone High-Dose 0.5 ML Intramuscular Suspension Prefilled Syringe Lot #: [id number] on: 26-Dec-2015 Fluzone High-Dose 0.5 ML Intramuscular Suspension Prefilled Syringe Lot #: [id number] on: 23-Dec-2016 Fluzone High-Dose 0.5 ML Intramuscular Suspension Prefilled Syringe Lot #: [id number] on: 01-Dec-2017 Family History Name Dates Details Family history of Dementia Comments: Family History Status: Active Family history of Coronary Artery Disease (V17.49) Comments: Family History Status: Active Family history of Diabetes Mellitus (V18.0) Comments: Family History Status: Active Name Dates Details Family history of Diabetes Mellitus (V18.0) Status: Active Social History Name Dates Details - Status: Name Dates Details Former smoker Former smoker Vital Signs Date Test Result Details [id number]-Mbw-[id number] BP Systolic 100 mm[Hg] Status: Comments: Location: LUE; Position: Sitting BP Diastolic 50 mm[Hg] Status: Comments: Location: LUE; Position: Sitting Height 70.5 in Status: Weight 216 lb Status: Body Mass Index Calculated 30.56 kg/m2 Status: Body Surface Area Calculated 2.17 m2 Status: Temperature 97.6 f Status: Comments: Method: Oral Heart Rate 80 /min Status: O2 SAT 96 % Status: Comments: Source: RA [id number]:09 BP Systolic 147 mm[Hg] Status: Comments: Location: LUE; Position: Sitting BP Diastolic 65 mm[Hg] Status: Comments: Location: LUE; Position: Sitting Height 70 in Status: Weight 225 lb Status: Body Mass Index Calculated 32.28 kg/m2 Status: Body Surface Area Calculated 2.19 m2 Status: Temperature 98.4 f Status: Heart Rate 97 /min Status: Respiration Rate 16 /min Status: Results Date Description Value Details [id number] XRAY Chest 2 views [id number] Chest 2 views SEE NOTES Comments: EXAM: XR CHEST 2 VIEWSDATE: 09/07/2018 13:07 CDTINDICATION: - feverADDITIONAL INFORMATION: None.COMPARISON: Chest radiograph from 07/28/2017.TECHNIQUE: PA and lateral chest radiographs. Number of images: 2FINDINGS:Lines and tubes and hardware: None.Lungs/Pleura: Senile bibasilar interstitial prominence.Pneumothorax: NoneVascularity: Normal pulmonary vascularity.Heart size: Normal.The mediastinal contours are normal. Bones: No acute bony abnormality is identified. Kyphosis of thoracic spineanterior wedging of several thoracic vertebra.Soft Tissues: Unremarkable.IMPRESSION:1. No acute cardiopulmonary abnormality seen.--This report was dictated by a [place] Carpenter/Fellow/Physician [employer] Laboratory Chief. Ihave personallyreviewed the images as well as the interpretation and agree with the findings.Read by: Juan R Arroyo MD Resident/Fellow/PhysicianAssistant: Juan R Arroyo MDDictated Date/time: 09/07/18 13:23Electronically Signed by: Terrance Sutton MD 09/08/1915:23FINAL REPORT [id number] [QLH] CBC (INCLUDES DIFF/PLT) WBC 1.0 {K/CMM} (Abnormal alert) Range: 3.7-10.4 RBC 1.71 {M/CMM} (Below low threshold) Range: 4.70-6.10 Hgb 6.8 g/dl (Abnormal alert) Range: 14.0-18.0 Comments: Critical Result(s) called to Natalya at 09/08/2018 00:46 byfj. Read back OK. Hct 20.9 % (Below low threshold) Range: 42.0-54.0 MCV 122.5 fL (Above high threshold) Range: 80.0-94.0 MCH 39.7 pg (Above high threshold) Range: 27.0-31.0 MCHC 32.4 g/dl Range: 32.0-36.0 RDW 20.1 % (Above high threshold) Range: 11.5-14.5 Platelet 22 {K/CMM} (Abnormal alert) Range: 133-450 Mean Platelet Volume 9.0 fL Range: 7.4-10.4 :48 [QL] URINALYSIS, COMPLETE W/REFLEX TO CULTURE UA Turbidity Marked (Abnormal) Range: Clear UA Spec Grav 1.015 Range: <=1.030 UA pH 5.0 Range: 5.0-8.0 UA Protein Negative mg/dl Range: Negative UA Glucose Negative mg/dl Range: Negative UA Ketones Negative mg/dl Range: Negative UA Bili Negative Range: Negative UA Blood Negative Range: Negative UA Nitrite Negative Range: Negative UA Leuk Est Trace (Abnormal) Range: Negative UA RBC 1 {/HPF} Range: 0-2 UA WBC 5 {/HPF} Range: 0-5 UA Mucus Few {/LPF} Range: None Seen UA Sq Epi Occasional {/LPF} Range: Few UA Color Yellow UROBILINOGEN <=1.0 mg/dl Range: 0.1-1.0 :48 [QL] C-REACTIVE PROTEIN CRP 16.4 mg/L (Above high threshold) Range: <=2.9 :48 [QL] SED RATE BY MODIFIED [place] Sedimentation Rate 48 {mm/hr} (Above high threshold) Range: 0-15 :48 [facility]] Differential Differential Cancel Reason: Lab Cancellation :48 [H] Manual Differential Segmented Neutrophils 15.0 % (Below low threshold) Range: 45.0-75.0 Bands 7.0 % Range: 0.0-11.0 Lymphocytes 72.0 % (Above high threshold) Range: 20.0-40.0 Atypical Lymphocytes 0.0 % Range: <=0.0 Monocytes 5.0 % Range: 2.0-12.0 Eosinophils 1.0 % Range: 0.0-4.0 Segs-Bands # 0.2 {K/CMM} (Below low threshold) Range: 1.5-8.1 Lymphocytes # 0.7 {K/CMM} (Below low threshold) Range: 1.0-5.5 Monocytes # 0.0 {K/CMM} Range: 0.0-0.8 Eosinophils # 0.0 {K/CMM} Range: 0.0-0.5 Plt Morphology Normal Range: Normal NRBC 1 {/100WB} Macrocyte 3+ (Abnormal) Range: None Seen Plan of Care Name Dates Details Planned Observations Planned Goals not documented Planned Encounters Appointment; JESUS ALBERTO PHILLIPS M.D. On: 19-Oct-2018 10:30 Instructions Name Dates Details Instructions not documented Encounters Appointment; JESUS ALBERTO PHILLIPS M.D. Encounter Diagnosis: Problem not documented On: 23-Dec-2016 10:30 Appointment; JORGE BARRERA NP Encounter Diagnosis: Problem not documented On: 20-Apr-2017 11:45 Appointment; JESUS ALBERTO PHILLIPS M.D. Encounter Diagnosis: Problem not documented On: 28-Apr-2017 10:30 Appointment; KEVAN WATERS M.D. Encounter Diagnosis: Problem not documented On: 04-May-2017 11:00 Appointment; TIGIST BRIAN D.O. Encounter Diagnosis: Problem not documented On: 28-Jul-2017 11:00 Appointment; MAMI RODRÍGUEZ M.D. Encounter Diagnosis: Problem not documented On: 17-Aug-2017 9:30 Appointment; JESUS ALBERTO PHILLIPS M.D. Encounter Diagnosis: Problem not documented On: 01-Dec-2017 9:00 Appointment; ABISAI CINTRON NP Encounter Diagnosis: Problem not documented On: 24-Feb-2018 12:45 Appointment; TIGIST BRIAN D.O. Encounter Diagnosis: Problem not documented On: 13-May-2018 13:30 Appointment; TIGIST BRIAN D.O. Encounter Diagnosis: Problem not documented On: 08-Jun-2018 14:30 Appointment; TIGIST BRIAN D.O. Encounter Diagnosis: Problem not documented On: 23-Jun-2018 13:30 Appointment; JESUS ALBERTO PHILLIPS M.D. Encounter Diagnosis: Problem not documented On: 07-Jul-2018 11:00 Appointment; TIGIST BRIAN D.O. Encounter Diagnosis: Problem not documented On: 07-Sep-2018 12:00 Appointment; Asael Smith M.D. Encounter Diagnosis: Problem not documented On: 21-Sep-2018 11:45
[2018-10-10] MEDS ORDERED: ACETAMINOPHEN 1000 MG/100 ML 100 ML IV ONE (16:49)
[2018-10-10] MEDS ORDERED: CARVEDILOL3.125 MG PO (17:00)
[2018-10-10] MEDS ORDERED: LOSARTAN POTASS25 MG PO (17:00)
[2018-10-10] MEDS ORDERED: PRAVASTATIN SOD40 MG PO (17:00)
[2018-10-10] MEDS ORDERED: LASIX20 MG PO (17:00)
[2018-10-10] MEDS ORDERED: ACETAMINOPHEN 1000 MG/100 ML IV NR (17:00)
[2018-10-10 17:04] LABS: HEMATOCRIT 22.9 % (38.2-49.6); HEMOGLOBIN 7.6 g/dL (14.0-18.0); LYMPHOCYTES # (AUTO) 0.3 (1.0-3.2); LYMPHOCYTES % 77.8 % (18.0-39.1); MEAN CORPUSCULAR HEMOGLOBIN 34.9 pg (28-32); MEAN CORPUSCULAR HGB CONC 33.2 g/dL (31-35); MONOCYTES % 2.8 % (4.4-11.3); NEUTROPHILS # (AUTO) 0.1 (2.1-6.9); NEUTROPHILS % 13.8 % (38.7-80.0); RED BLOOD COUNT 2.18 x10e6/uL (4.3-5.7); RED CELL DISTRIBUTION WIDTH 22.4 % (11.7-14.4)
[2018-10-10] MEDS ORDERED: VANCOMYCIN 1GM/NS 250 ML 250 ML IV ONE (17:15)
[2018-10-10 17:16] LABS: BILIRUBIN,URINE NEGATIVE (NEGATIVE); CLARITY,URINE SL CLOUDY (CLEAR); COLOR,URINE YELLOW (YELLOW); KETONES,URINE NEGATIVE (NEGATIVE); LEUKOCYTE ESTERASE ,URINE NEGATIVE (NEGATIVE); NITRITE,URINE NEGATIVE (NEGATIVE); PROTEIN,URINE DIPSTICK 1+ (NEGATIVE); URINE UROBILINOGEN 4 mg/dL (0.2 - 1)
--- NOTE | 2018-10-10 17:21 | NUR ---
PT DID NOT WANT TO GET IMAGING STATING, "YOU JUST WANT MY MONEY." EXPLAINED IMPORTANCE OF TESTING IN GREAT DETAIL AND PT AND SON AGREE TO TESTING. PT TO RADIOLOGY
[2018-10-10 17:22] LABS: INR 0.98; PROTHROMBIN TIME 13.5 seconds (11.9-14.5)
[2018-10-10 17:23] LABS: PARTIAL THROMBOPLASTIN TIME 35.3 seconds (23.8-35.5)
[2018-10-10 17:26] LABS: PLATELET COUNT 9 x10e3/uL (140-360)
[2018-10-10 17:32] LABS: ALBUMIN 2.7 g/dL (3.5-5.0); ALBUMIN/GLOBULIN RATIO 1.1 (0.8-2.0); ANION GAP 12.6 mmol/L (8-16); CALCIUM 8.9 mg/dL (8.4-10.2); CREATININE, SERUM 1.49 mg/dL (0.72-1.25); POTASSIUM 4.6 mmol/L (3.5-5.1)
[2018-10-10 17:35] LABS: BACTERIA,URINE MANY /HPF; EPITHELIAL CELLS,URINE RARE /LPF; RBC,URINE 0-5 /HPF (0-5); WBC,URINE (MAN) 0-5 /HPF (0-5)
[2018-10-10 17:38] LABS: B-TYPE NATRIURETIC PEPTIDE2 240.8 pg/mL (0-100); CREATINE KINASE MB 0.4 ng/mL (0-5.0)
--- NOTE | 2018-10-10 17:52 | Diagnostic Imaging Report ---
EXAMINATION: CHEST SINGLE (PORTABLE) COMPARISON: None INDICATION: Weakness, fall ^ERMD ORDER ^[id number] ^1735 ^Y DISCUSSION: Frontal view of the chest obtained at 1734 hours. HEART AND MEDIASTINUM: The heart is mildly enlarged, possibly due to portable technique LINES: None. LUNGS: Mild hyperinflation. No pneumonia or pulmonary edema. PLEURA: No pleural effusion or pneumothorax. BONES AND SOFT TISSUES: No displaced fractures. The soft tissues are normal. IMPRESSION: Mild pulmonary hyperinflation. No acute cardiopulmonary process. Signed by: Dr. Lakshmi Escobar MD on 10/10/2018 5:48 PM
--- NOTE | 2018-10-10 17:53 | Diagnostic Imaging Report ---
CT BRAIN WO HISTORY: Weakness, fall COMPARISON: None. Technique: Noncontrast axial scans were obtained from skull base to the vertex. Coronal and sagittal reconstructions obtained from the axial data. One or more of the following dose reduction techniques were used: Automated exposure control, adjustment of the mA and/or kV according to patient size, and/or utilization of iterative reconstruction technique. Beam hardening and streak artifacts obscure some details. DISCUSSION: Scalp/Skull: Unremarkable. Brain sulci: Mildly prominent. Ventricles: Compensatory dilatation. Extra-axial spaces: No masses or fluid collections. Carotid and vertebral artery calcifications are present. Parenchyma: Mild bilateral deep white matter hypodensity is likely chronic microvascular ischemic change. Otherwise, no masses, hemorrhage, or large vascular territory acute infarct. Dural sinuses: No abnormal densities. Sellar/Suprasellar region: Intact. Skull base: Intact. Incidental findings: Right sphenoid sinus opacification with mild peripheral sclerosis, which suggests chronic inflammation. Minimal bilateral maxillary sinus mucosal thickening is right ocular lens replacement. IMPRESSION: 1. No acute intracranial abnormalities. 2. Mild supratentorial chronic microvascular ischemic change. Mild generalized cerebral volume loss. Signed by: Dr. Tashi De La Garza M.D. on 10/10/2018 5:50 PM
[2018-10-10] MEDS ORDERED: CEFEPIME 2 GM/NS 0.9% 100 ML 100 ML IV SCH (18:00)
--- NOTE | 2018-10-10 18:01 | NUR ---
REC'D REPORT FOR CONTINUITY OF CARE.
--- NOTE | 2018-10-10 18:16 | NUR ---
[place] [facility] [facility] [place]SP[place]
--- NOTE | 2018-10-10 18:29 | NUR ---
REPORT CALLED TO ZAHRA FORDE AT [phone] FOR ER- ER TX TO [facility]
[2018-10-10 19:22] LABS: LYMPHOCYTES % (MANUAL) 88 % (19-48); MONOCYTES % (MANUAL) 6 % (3.4-9.0); NEUTROPHILS % (MANUAL) 6 % (40-74)
[2018-10-10 19:23] LABS: PLATELET ESTIMATE MARKEDLY DECREASED; PLATELET MORPHOLOGY COMMENT NORMAL
[2018-10-10 19:24] LABS: POIKILOCYTOSIS SLIGHT
[2018-10-10 19:25] LABS: ANISOCYTOSIS MODE
== END 2018-10-10 19:15 | disposition other institution (70) ==
LOC: ER 16:24
DX: S80.02XA Contusion of left knee, initial encounter (principal); S80.01XA Contusion of right knee, initial encounter; W06.XXXA Fall from bed, initial encounter; Y93.84 Activity, sleeping; Y92.003 Bedroom of unspecified non-institutional (private) residence as the place of occurrence of the external cause; C95.90 Leukemia, unspecified not having achieved remission; D72.819 Decreased white blood cell count, unspecified; D70.1 Agranulocytosis secondary to cancer chemotherapy; D64.9 Anemia, unspecified
CPT/HCPCS: 36415; 70450; 71045; 80053; 81001; 82550; 82553; 83605; 83880; 84484; 85025; 85610; 85730; 86850; 86900; 87040; 87071; 87086; 87186; 87205; 93005; 99284; J0131; J3370